=== PATIENT | female | born 1940 | race Caucasian/White ===

== ENCOUNTER 2016-07-26 21:49 | Inpatient (IN) | payer MEDICARE, BC ==
[2016-07-26] MEDS ORDERED: methylPREDNISolone 125 MG* 2 ML VIAL IV ONE (22:16)
[2016-07-26] MEDS ORDERED: Albuterol/Ipratropium NEB.SOL* Albuterol 2.5 MG/Ipratropium 0.5 MG 3 ML INH ONE (22:16)
--- NOTE | 2016-07-26 22:39 | RAD ---
Indication: Congestion, cough, shortness of breath with progression over the last 2 days. History of cardiac and respiratory disease. Comparison: No relevant prior exams available on the [facility] PACS for comparison. Technique: Upright AP 2210 hours Report: Elevated lung volumes and both diffuse mild prominence of the interstitial markings and patchy rarefaction of the mid to upper lung zone interstitial markings. Negative for alveolar consolidation, focal pulmonary lesions, pleural effusion, pneumothorax. Negative for cardiomegaly. Prominent central pulmonary vasculature with cephalization. Nonetheless the central pulmonary vasculature remains well defined. IMPRESSION: Stigmata of obstructive lung disease. No acute pulmonary or cardiac process evident. Probable pulmonary arterial hypertension.
[2016-07-26] MEDS: NS 0.9% 1000 ML* 2,500 ML IV ONE (22:49)
[2016-07-26 23:10] LABS: Hematocrit 39 % (35-47); Hemoglobin 12.8 g/dl (12.0-16.0); Mean Corpuscular HGB Conc 33 g/dl (31-36); Mean Corpuscular Hemoglobin 29 pg (27-31); Mean Corpuscular Volume 89 fL (80-97); Mean Platelet Volume 8 um3 (7.4-10.4); Red Blood Count 4.43 10^6/ul (4.0-5.4); Red Cell Distribution Width 13 % (10.5-15); White Blood Count 16.3 10^3/ul (3.5-10.8)
[2016-07-26 23:27] LABS: Albumin 4.5 g/dL (3.2-5.2); BUN/Creatinine Ratio 16.4 (8-20); Calcium 9.4 mg/dL (8.6-10.3); EGFR African American 100.2 (>60); EGFR Non-African American 77.9 (>60); Globulin 2.5 g/dL (2-4); Potassium 3.6 mmol/L (3.5-5.0); Total Bilirubin 0.3 mg/dL (0.2-1.0)
[2016-07-26] MEDS ORDERED: Azithromycin IV* 500 MG ADVAN VIAL IVPB ONE (23:34)
[2016-07-26] MEDS ORDERED: cefTRIAXone(*) 1 GM in NS 0.9% 50 ML* 50 ML IVPB ONE (23:34)
[2016-07-26] MEDS ORDERED: NS 0.9% 1000 ML* 2,500 ML IV ONE (23:36)
[2016-07-27] MEDS ORDERED: Ondansetron INJ* 2 MG/ML VIAL IV PRN (00:40)
[2016-07-27] MEDS ORDERED: Albuterol 2.5 MG/3 ML NEB.SOL* (0.083%) INH PRN (00:40)
[2016-07-27] MEDS ORDERED: CMCS: Melatonin (NF) 3 MG TAB PO PRN (00:40)
[2016-07-27] MEDS ORDERED: cefTRIAXone VIAL(*) 1,000 MG in NS 0.9% 50 ML* 50 ML IVPB SCH (01:00)
[2016-07-27] MEDS ORDERED: Azithromycin IV(*) 500 MG in NS 0.9% 250 ML* 250 ML IVPB SCH (01:00)
--- NOTE | 2016-07-27 01:00 | HP ---
H&P (Free Text) History and Physical: PCP: Stevie Conde NP Date/Time of Evaluation: 07/26/2016 2354 CC: SOB HPI: Mrs Palmer is a 76YO female HX 2L oxygen dependent COPD previously requiring intubation for exacerbation presents with malaise and fatigue beginning progressing to include SOB and cough today. She denies subjective F/C, N/V, chest pain, palpitations, light-headedness, or other issues. Her had been ill with an upper respiratory infection the preceding week. She presented once the SOB began as she "goes down quickly". She has taken 2 doses of erythromycin since yesterday from a former prescription. PMedHx 2L oxygen dependent COPD w/ HX hyperCarbia requiring intubation HTN hypothyroidism GERD anxiety Ambulatory Orders Albuterol 2.5MG/3ML (0.083%)* [Ventolin 2.5 MG/3 ML NEB.CHAD*] 2.5 mg INH BID 05/29 Alprazolam 0.25 mg PO BID 09/18/13 Ascorbic Acid [Vitamin C] 500 mg PO DAILY 09/18/13 Fluticasone-Salmeterol [Advair Diskus 250-50 Mcg/Dose] 1 inh INH BID 09/18/13 Levothyroxine Sodium [Synthroid] 125 mcg PO QAM 09/18/13 Multiple Vitamins W/ Minerals [Multi Complete] 1 cap PO DAILY 09/18/13 Prilosec 20 mg PO DAILY 09/18/13 Tiotropium CAP.INH* [Spiriva*] 1 cap INH DAILY 09/18/13 Cholecalciferol [Vitamin D] 1,000 unit PO DAILY 12/14/13 Guaifenesin [Mucinex] 600 mg PO DAILY PRN 12/14/13 Oxygen 12/14/13 Polyethylene Glycol 3350* [Miralax*] 17 gm PO DAILY 12/14/13 Sennosides-Docusate Sodium [Stool Softener Laxative 8.6-50 mg] 1 tab PO DAILY Allergies Diazepam [From Valium] Allergy (Intermediate, Verified 12/27/13 10:15) Agitation Tetracycline Allergy (Intermediate, Verified 12/27/13 10:15) Blurred Vision Tetanus Toxoid Allergy (Verified 05/26/14 13:55) swelling to arm iv contrast Allergy (Severe, Uncoded 12/27/13 10:15) See Comment pt had hives after IVP. After myelogram high fever, n/v with overnight hospital stay SocHx: former smoker quit 5years ago, ~3 glasses of wine weekly, no recreational drugs; lives with her ; full code status FamHx: strongly positive for cancer ROS: as above, otherwise reviewed and all were negative Constitutional: NAD, normally developed, overweight white female vitals: Vital Signs Temp 37.1 C 07/26/16 22:36 Pulse 116 07/26/16 22:52 Resp 26 07/26/16 22:52 BP 139/64 07/26/16 21:54 Pulse Ox 99 07/26/16 22:52 Intake & Output 07/26/16 07/26/16 07/27/16 11:59 23:59 11:59 Weight 73.482 kg HEENM: atraumatic; sclera/conjunctiva: non-icteric/clear; hearing: clinically intact; oropharynx: clear, mucosa tacky Neck: soft tissue: non-tender; thyroid: normal Pulmonary: scant L lateral base crackle, good aeration, no accessory muscle use CV: RR/RR, normal S1S2, no carotid bruit, no jugular venous distention, 2+ B DP/ PT, no edema Abdominal: soft, non-distended, non-tender, no rebound/guarding/rigidity, normoactive bowel sounds, no hepatosplenomegaly or masses, no costovertebral angle tenderness Musculoskeletal: general: grossly intact; gait: stable Integumental: normal appearance and texture of exposed skin Psychiatric orientation: AA&O to PPS affect: calm mood: cooperative eye contact: good content: reliable responses: timely insight: good Testing: Lab Results 07/26/16 07/26/16 07/26/16 Range/Units 22:53 22:53 22:53 WBC 16.3 H (3.5-10.8) 10^3/ul RBC 4.43 (4.0-5.4) 10^6/ul Hgb 12.8 (12.0-16.0) g/dl Hct 39 (35-47) % MCV 89 (80-97) fL MCH 29 (27-31) pg MCHC 33 (31-36) g/dl RDW 13 (10.5-15) % Plt Count 260 (150-450) 10^3/ul MPV 8 (7.4-10.4) um3 Neut % (Auto) 90.6 H (38-83) % Lymph % (Auto) 4.0 L (25-47) % [place] % (Auto) 4.2 (1-9) % Eos % (Auto) 0.9 (0-6) % Baso % (Auto) 0.3 (0-2) % Absolute Neuts (auto) 14.8 H (1.5-7.7) 10^3/ul Absolute Lymphs (auto) 0.7 L (1.0-4.8) 10^3/ul Absolute Monos (auto) 0.7 (0-0.8) 10^3/ul Absolute Eos (auto) 0.1 (0-0.6) 10^3/ul Absolute Basos (auto) 0.1 (0-0.2) 10^3/ul Absolute Nucleated RBC 0.01 10^3/ul Nucleated RBC % 0 INR (Anticoag Therapy) 0.86 L (0.89-1.11) APTT 29.3 (26.0-36.3) seconds Sodium (133-145) mmol/L Potassium (3.5-5.0) mmol/L Chloride (101-111) mmol/L Carbon Dioxide (22-32) mmol/L Anion Gap (2-11) mmol/L BUN (6-24) mg/dL Creatinine (0.51-0.95) mg/dL Est GFR ( Amer) (>60) Est GFR (Non-Af Amer) (>60) BUN/Creatinine Ratio (8-20) Glucose (70-100) mg/dL Lactic Acid 1.6 (0.5-2.0) mmol/L Calcium (8.6-10.3) mg/dL Total Bilirubin (0.2-1.0) mg/dL AST (13-39) U/L ALT (7-52) U/L Alkaline Phosphatase (34-104) U/L Troponin I (<0.04) ng/mL Total Protein (6.4-8.9) g/dL Albumin (3.2-5.2) g/dL Globulin (2-4) g/dL Albumin/Globulin Ratio (1-3) 07/26/16 Range/Units 22:54 WBC (3.5-10.8) 10^3/ul RBC (4.0-5.4) 10^6/ul Hgb (12.0-16.0) g/dl Hct (35-47) % MCV (80-97) fL MCH (27-31) pg MCHC (31-36) g/dl RDW (10.5-15) % Plt Count (150-450) 10^3/ul MPV (7.4-10.4) um3 Neut % (Auto) (38-83) % Lymph % (Auto) (25-47) % [place] % (Auto) (1-9) % Eos % (Auto) (0-6) % Baso % (Auto) (0-2) % Absolute Neuts (auto) (1.5-7.7) 10^3/ul Absolute Lymphs (auto) (1.0-4.8) 10^3/ul Absolute Monos (auto) (0-0.8) 10^3/ul Absolute Eos (auto) (0-0.6) 10^3/ul Absolute Basos (auto) (0-0.2) 10^3/ul Absolute Nucleated RBC 10^3/ul Nucleated RBC % INR (Anticoag Therapy) (0.89-1.11) APTT (26.0-36.3) seconds Sodium 135 (133-145) mmol/L Potassium 3.6 (3.5-5.0) mmol/L Chloride 102 (101-111) mmol/L Carbon Dioxide 29 (22-32) mmol/L Anion Gap 4 (2-11) mmol/L BUN 12 (6-24) mg/dL Creatinine 0.73 (0.51-0.95) mg/dL Est GFR ( Amer) 100.2 (>60) Est GFR (Non-Af Amer) 77.9 (>60) BUN/Creatinine Ratio 16.4 (8-20) Glucose 143 H (70-100) mg/dL Lactic Acid (0.5-2.0) mmol/L Calcium 9.4 (8.6-10.3) mg/dL Total Bilirubin 0.30 (0.2-1.0) mg/dL AST 16 (13-39) U/L ALT 17 (7-52) U/L Alkaline Phosphatase 68 (34-104) U/L Troponin I 0.00 (<0.04) ng/mL Total Protein 7.0 (6.4-8.9) g/dL Albumin 4.5 (3.2-5.2) g/dL Globulin 2.5 (2-4) g/dL Albumin/Globulin Ratio 1.8 (1-3) ECG, personally reviewed: sinus tachycardia rate 111, no ischemia CXR, personally reviewed: IMPRESSION: Stigmata of obstructive lung disease. No acute pulmonary or cardiac process evident. Probable pulmonary arterial hypertension. Impression: 76F HX 2L oxygen dependent COPD presents in exacerbation DIAGNOSIS & PLAN Primary COPD exacerbation : albuterol nebs : mometasone/formoterol : tiotropium : guaifenesin : azithromycin & ceftriaxone : incentive spirometry : supplemtental oxygen cautiously 2nd HX hyperCarbia : supportive care Secondary HTN : review meds once reconciled hypothyroidism : continue levothyroxine once reconciled GERD : continue omeprazole anxiety : continue alprazolam once reconciled Admission Rational: inpatient for COPD exacerbation not anticipated to stabilize adequately w/i 48h to allow for discharge DVTp: heparin SQ Code Status: full HCP:
[2016-07-27] MEDS: Benzonatate CAP* 100 MG PO PRN ×2 (03:30→18:23)
[2016-07-27] MEDS: Albuterol 2.5 MG/3 ML NEB.SOL* (0.083%) INH SCH ×4 (04:09→19:34)
[2016-07-27] MEDS: Levothyroxine TAB* 125 MCG TAB PO SCH (05:42)
[2016-07-27 05:58] LABS: Hematocrit 35 % (35-47); Hemoglobin 11.2 g/dl (12.0-16.0); Mean Corpuscular HGB Conc 32 g/dl (31-36); Mean Corpuscular Hemoglobin 29 pg (27-31); Mean Corpuscular Volume 89 fL (80-97); Mean Platelet Volume 9 um3 (7.4-10.4); Red Blood Count 3.89 10^6/ul (4.0-5.4); Red Cell Distribution Width 14 % (10.5-15); White Blood Count 19.6 10^3/ul (3.5-10.8)
[2016-07-27] MEDS: Omeprazole CAP* 20 MG PO SCH (06:13)
[2016-07-27 06:21] LABS: Urine Bilirubin Negative (Negative); Urine Glucose Negative (Negative); Urine Nitrite Negative (Negative)
[2016-07-27] MEDS: Mometasone/Formoter 200/5 MDI INH SCH ×2 (07:35→19:34)
[2016-07-27] MEDS: Tiotropium CAP.INH* CAP.INH/18 MCG INH SCH (07:35)
[2016-07-27] MEDS: Docusate CAP* 100 MG PO SCH ×2 (08:56→20:33)
[2016-07-27] MEDS: ALPRAZolam TAB* 0.5 MG PO SCH ×3 (08:56→20:36)
[2016-07-27] MEDS: Senna TAB PO SCH (08:57)
[2016-07-27] MEDS: guaiFENesin ER TAB 600 MG PO SCH ×2 (08:57→20:33)
[2016-07-27] MEDS: Polyethylene Glycol 3350* 17 GM PACKET PO SCH (08:57)
[2016-07-27] MEDS ORDERED: Senna/Docusate (NF) TAB PO SCH (09:00)
[2016-07-27] MEDS ORDERED: Spiriva Inhaler DEVICE* 1 EACH DEVICE INH ONE (09:00)
[2016-07-27] MEDS ORDERED: Tiotropium CAP.INH* CAP.INH/18 MCG INH SCH (09:00)
--- NOTE | 2016-07-27 09:42 | PN ---
Subjective Date of Service: 07/27/16 Interval History: Patient seen and examined at bedside. Reports feeling tired from being awake most of night. Denies CP. Feels SOB is better. Denies fever/chills since being admitted. No other acute concerns at this time. Family History: Unchanged from Admission Social History: Unchanged from Admission Past Medical History: Unchanged from Admission Objective Active Medications: Acetaminophen (Tylenol Tab*) 650 mg PO Q6H PRN PRN Reason: FEVER/PAIN Albuterol (Ventolin 2.5 Mg/3 Ml Neb.Juanita*) 2.5 mg INH Q2H PRN PRN Reason: SOB/WHEEZING Albuterol (Ventolin 2.5 Mg/3 Ml Neb.Juanita*) 2.5 mg INH [id number] AWAKE FOR[facility]LY [facility], [facility] Last Admin: 07/27/16 07:33 Dose: 2.5 mg Alprazolam (Xanax Tab*) 0.25 mg PO BID [facility], [facility] Last Admin: 07/27/16 08:56 Dose: 0.25 mg Benzonatate (Tessalon Cap*) 100 mg PO TID PRN PRN Reason: COUGH Last Admin: 07/27/16 03:30 Dose: 100 mg Docusate Sodium (Colace Cap*) 200 mg PO BID [facility], [facility] Last Admin: 07/27/16 08:56 Dose: 200 mg Guaifenesin (Mucinex*) 1,200 mg PO BID [facility], [facility] Last Admin: 07/27/16 08:57 Dose: 1,200 mg Heparin Sodium (Porcine) (Heparin Vial(*)) 5,000 units SUBCUT Q8HR [facility], [facility] Sodium Chloride (Ns 0.9% 1000 Ml*) 1,000 mls @ 100 mls/hr IV PER RATE [facility], [facility]–1983 Ceftriaxone Sodium 1,000 mg/ (Sodium Chloride) 50 mls @ 200 mls/hr IVPB Q24H [facility], [facility] Azithromycin 500 mg/ Sodium (Chloride) 250 mls @ 250 mls/hr IVPB Q24H [facility], [facility] Levothyroxine Sodium (Synthroid Tab*) 125 mcg PO DAILY@0600 [facility] Last Admin: 07/27/16 05:42 Dose: 125 mcg Melatonin (Melatonin (Nf)) 3 mg PO BEDTIME PRN; Protocol PRN Reason: Sleep Methylprednisolone Sodium Succinate (Solu-Medrol 40 Mg) 40 mg IV Q8H [facility], [facility] Mometasone Furoate/Formoterol Fumar (Dulera 200/5 Mdi*) 2 puff INH BID [facility], [facility] Last Admin: 07/27/16 07:35 Dose: 2 puff Omeprazole (Prilosec Cap*) 20 mg PO DAILY@0600 [facility] Last Admin: 07/27/16 06:13 Dose: Not Given Ondansetron HCl (Zofran Inj*) 4 mg IV Q6H PRN PRN Reason: NAUSEA Polyethylene Glycol/Electrolytes (Miralax*) 17 gm PO DAILY [facility] Last Admin: 07/27/16 08:57 Dose: 17 gm Senna (Senokot Tab*) 1 tab PO DAILY [facility] Last Admin: 07/27/16 08:57 Dose: 1 tab Tiotropium [place] (Spiriva Cap.Inh*) 1 cap INH DAILY [facility] Last Admin: 07/27/16 07:35 Dose: 1 inh Vital Signs 07/27/16 07/27/16 07/27/16 01:24 02:48 03:37 Temperature 98.7 F 98.7 F 98.5 F Pulse Rate 108 96 Respiratory 28 16 Rate Blood Pressure 139/57 114/42 (mmHg) O2 Sat by Pulse 95 96 Oximetry 07/27/16 07/27/16 07:35 08:56 Temperature Pulse Rate 86 Respiratory 18 18 Rate Blood Pressure (mmHg) O2 Sat by Pulse 98 Oximetry Oxygen Devices in Use Now: Nasal Cannula - 3Lnc Appearance: Female patient, lying in bed, NAD Eyes: PERRLA Ears/Nose/Mouth/Throat: Mucous Membranes Moist Neck: NL Appearance and Movements; NL JVP Respiratory: Symmetrical Chest Expansion and Respiratory Effort, - - scattered rhonchi and expiratory wheezing, prolonged expiratory phase Cardiovascular: RRR Abdominal: NL Sounds; No Tenderness; No Distention Extremities: No Edema Neurological: Alert and Oriented x 3 Lines/Tubes/Other Access: Clean, Dry and Intact Peripheral IV Nutrition: Taking PO's Result Diagrams: 07/27/16 05:37 07/26/16 22:54 Assess/Plan/Problems-Billing Assessment: Ms. Palmer is a 76 yo female with a PMH of oxygen-dependent COPD, hypercarbia, HTN, hypothyroidism, GERD, and anxiety who presented to the ED on 07/26 with concern for increased SOB that is likely secondary to COPD exacerbation and CAP exposure. - Patient Problems (1) COPD (chronic obstructive pulmonary disease) Code(s): J44.9 - CHRONIC OBSTRUCTIVE PULMONARY DISEASE, UNSPECIFIED Comment: With exacerbation Patient's recently treated for CAP. Continue ceftriaxone and azithromycin Continue prn albuterol, Dulera, Spiriva, guaifenesin. Incentive spirometry Patient chronically on 2Lnc, now on 3Lnc Supportive care (2) HTN (hypertension) Code(s): I10 - ESSENTIAL (PRIMARY) HYPERTENSION Comment: Normotensive Does not appear to be on any chronic medications (3) Hypothyroidism Code(s): E03.9 - HYPOTHYROIDISM, UNSPECIFIED Comment: Continue levothyroxine. (4) GERD (gastroesophageal reflux disease) Code(s): K21.9 - GASTRO-ESOPHAGEAL REFLUX DISEASE WITHOUT ESOPHAGITIS Comment : Continue omeprazole. (5) Anxiety Code(s): F41.9 - ANXIETY DISORDER, UNSPECIFIED Comment: Continue alprazolam. (6) DVT prophylaxis Code(s): FCQ5581 - Comment: SQ heparin Status and Disposition: Inpatient admission. Anticipate discharge in 2-3 days.
[2016-07-27] MEDS: NS 0.9% 1000 ML* 1,000 ML IV SCH ×2 (12:43→22:36)
[2016-07-27] MEDS: Acetaminophen TAB* 325 MG PO PRN (23:13)
[2016-07-28] MEDS: cefTRIAXone VIAL(*) 1,000 MG in NS 0.9% 50 ML* 50 ML IVPB SCH (00:10)
[2016-07-28] MEDS: Azithromycin IV(*) 500 MG in NS 0.9% 250 ML* 250 ML IVPB SCH (00:36)
--- NOTE | 2016-07-28 00:51 | ED ---
Charla Pineda Alok, scribed for Julio C Lundberg MD on 07/26/16 at 2228 . HPI Febrile Illness - HPI Summary HPI Summary: 76F presents to the ED BIBA with SOB and a fever of 100.1 F for the last two days, progressively getting worse. Pt had a breathing treatment at 1930 today and again while en route to ED by EMS. Pt also notes non-productive cough and rhinorrhea. Pt notes recent weight gain. Pt notes a chest heaviness at times, last experienced yesterday lasting minutes. Pt denies myalgia, eye drainage, diarrhea, or edema. Pt denies dysuria, hematuria, or increased urinary frequency. PMHx includes home O2 for COPD. - History of Current Complaint Chief Complaint: EDRespiratoryDistress Time Seen by Provider: 07/26/16 22:05 Hx Obtained From: Patient Onset/Duration: Started Days Ago, Atraumatic, Still Present Timing: Constant Temperature: 37.8 C Initial Severity: Moderate Current Severity: Moderate Pain Intensity: 0 Pain Scale Used: 0-10 Numeric Aggravating Factors: Nothing Alleviating Factors: Other: - Breathing treatment x2 Associated Signs and Symptoms: Cough, SOB, Other: - chest heaviness yesterday, rhinorrhea - Allergy/Home Medications Allergies/Adverse Reactions: Allergies Allergy/AdvReac Type Severity Reaction Status Date / Time Diazepam [From Valium] Allergy Intermediate Agitation Verified 12/27/13 10:15 Tetracycline Allergy Intermediate Blurred Verified 12/27/13 10:15 Vision Tetanus Toxoid Allergy swelling Verified 05/26/14 13:55 to arm iv contrast Allergy Severe See Comment Uncoded 12/27/13 10:15 PMH/Surg Hx/FS Hx/Imm Hx Endocrine/Hematology History: Reports: Hx Thyroid Disease - HYPOTHYROID Respiratory History: Reports: Other Respiratory Problems/Disorders - O2 2 LITERS NASAL CANNULA GI History: Reports: Hx Gastroesophageal Reflux Disease - ON PRILOSEC FOR, Other GI Disorders - 3 MONTHS AGO- DX WITH DIVERTICULITIS Musculoskeletal History: Reports: Hx Arthritis Sensory History: Reports: Hx Cataracts - BILATERAL Denies: Hx Contacts or Glasses, Hx Hearing Aid Opthamlomology History: Reports: Hx Cataracts - BILATERAL Denies: Hx Contacts or Glasses Psychiatric History: Reports: Hx Anxiety - ON MEDICATION FOR - Surgical History Surgery Procedure, Year, and Place: 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 D&C at age 20, 1962 Hx Anesthesia Reactions: No Infectious Disease History: No Infectious Disease History: Denies: Traveled Outside the [place] in Last 30 Days - Family History Known Family History: Positive: Other - Yes- Breast CA - Social History Occupation: Retired Lives: With Family Alcohol Use: Occasionally Substance Use Type: Reports: None Smoking Status (MU): Former Smoker Amount Used/How Often: 1 PPD X 50 YEARS Review of Systems Positive: Fever. Negative: Chills Negative: Drainage, Erythema Positive: Nasal Discharge. Negative: Sore Throat Positive: Chest Pain Positive: Shortness Of Breath, Cough Negative: Abdominal Pain, Vomiting, Nausea Negative: dysuria, frequency - urinary, hematuria Negative: Myalgia, Edema Negative: Rash Neurological: Other - Negative: dizziness All Other Systems Reviewed And Are Negative: Yes Physical Exam - Summary Physical Exam Summary: Constitutional: Well-developed, Well-nourished, Alert. (-) Distressed Skin: Warm, Dry HENT: Normocephalic; Atraumatic Eyes: Conjunctiva normal Neck: Musculoskeletal ROM normal neck. (-) JVD, (-) Stridor, (-) Tracheal deviation Cardio: Rhythm regular, rate normal, Heart sounds normal; Intact distal pulses; The pedal pulses are 2+ and symmetric. Radial pulses are 2+ and symmetric. (-) Murmur Pulmonary/Chest wall: Rhonchi in right lower lung field. Tachypnic. Pursed lip breathing. Abd: Soft, (-) Tenderness, (-) Distension, (-) Guarding, (-) Rebound Musculoskeletal: (-) Edema Lymph: (-) Cervical adenopathy Neuro: Alert, Oriented x3 Psych: Mood and affect Normal Triage Information Reviewed: Yes Vital Signs On Initial Exam: Initial Vitals Temp Pulse Resp BP Pulse Ox 100.1 F 112 22 139/64 95 07/26/16 21:54 07/26/16 21:54 07/26/16 21:54 07/26/16 21:54 07/26/16 21:54 Vital Signs Reviewed: Yes Diagnostics - Vital Signs Vital Signs Temp Pulse Resp BP Pulse Ox 07/26/16 21:54 100.1 F 112 22 139/64 95 - Laboratory Lab Results: Lab Results 06/11/17 06/11/17 06/11/17 Range/Units 22:53 22:53 22:53 WBC 16.3 H (3.5-10.8) 10^3/ul RBC 4.43 (4.0-5.4) 10^6/ul Hgb 12.8 (12.0-16.0) g/dl Hct 39 (35-47) % MCV 89 (80-97) fL MCH 29 (27-31) pg MCHC 33 (31-36) g/dl RDW 13 (10.5-15) % Plt Count 260 (150-450) 10^3/ul MPV 8 (7.4-10.4) um3 Neut % (Auto) 90.6 H (38-83) % Lymph % (Auto) 4.0 L (25-47) % [place] % (Auto) 4.2 (1-9) % Eos % (Auto) 0.9 (0-6) % Baso % (Auto) 0.3 (0-2) % Absolute Neuts (auto) 14.8 H (1.5-7.7) 10^3/ul Absolute Lymphs (auto) 0.7 L (1.0-4.8) 10^3/ul Absolute Monos (auto) 0.7 (0-0.8) 10^3/ul Absolute Eos (auto) 0.1 (0-0.6) 10^3/ul Absolute Basos (auto) 0.1 (0-0.2) 10^3/ul Absolute Nucleated RBC 0.01 10^3/ul Nucleated RBC % 0 INR (Anticoag Therapy) 0.86 L (0.89-1.11) APTT 29.3 (26.0-36.3) seconds Sodium (133-145) mmol/L Potassium (3.5-5.0) mmol/L Chloride (101-111) mmol/L Carbon Dioxide (22-32) mmol/L Anion Gap (2-11) mmol/L BUN (6-24) mg/dL Creatinine (0.51-0.95) mg/dL Est GFR ( Amer) (>60) Est GFR (Non-Af Amer) (>60) BUN/Creatinine Ratio (8-20) Glucose (70-100) mg/dL Lactic Acid 1.6 (0.5-2.0) mmol/L Calcium (8.6-10.3) mg/dL Total Bilirubin (0.2-1.0) mg/dL AST (13-39) U/L ALT (7-52) U/L Alkaline Phosphatase (34-104) U/L Troponin I (<0.04) ng/mL Total Protein (6.4-8.9) g/dL Albumin (3.2-5.2) g/dL Globulin (2-4) g/dL Albumin/Globulin Ratio (1-3) // Range/Units 22:54 WBC (3.5-10.8) 10^3/ul RBC (4.0-5.4) 10^6/ul Hgb (12.0-16.0) g/dl Hct (35-47) % MCV (80-97) fL MCH (27-31) pg MCHC (31-36) g/dl RDW (10.5-15) % Plt Count (150-450) 10^3/ul MPV (7.4-10.4) um3 Neut % (Auto) (38-83) % Lymph % (Auto) (25-47) % [place] % (Auto) (1-9) % Eos % (Auto) (0-6) % Baso % (Auto) (0-2) % Absolute Neuts (auto) (1.5-7.7) 10^3/ul Absolute Lymphs (auto) (1.0-4.8) 10^3/ul Absolute Monos (auto) (0-0.8) 10^3/ul Absolute Eos (auto) (0-0.6) 10^3/ul Absolute Basos (auto) (0-0.2) 10^3/ul Absolute Nucleated RBC 10^3/ul Nucleated RBC % INR (Anticoag Therapy) (0.89-1.11) APTT (26.0-36.3) seconds Sodium 135 (133-145) mmol/L Potassium 3.6 (3.5-5.0) mmol/L Chloride 102 (101-111) mmol/L Carbon Dioxide 29 (22-32) mmol/L Anion Gap 4 (2-11) mmol/L BUN 12 (6-24) mg/dL Creatinine 0.73 (0.51-0.95) mg/dL Est GFR ( Amer) 100.2 (>60) Est GFR (Non-Af Amer) 77.9 (>60) BUN/Creatinine Ratio 16.4 (8-20) Glucose 143 H (70-100) mg/dL Lactic Acid (0.5-2.0) mmol/L Calcium 9.4 (8.6-10.3) mg/dL Total Bilirubin 0.30 (0.2-1.0) mg/dL AST 16 (13-39) U/L ALT 17 (7-52) U/L Alkaline Phosphatase 68 (34-104) U/L Troponin I 0.00 (<0.04) ng/mL Total Protein 7.0 (6.4-8.9) g/dL Albumin 4.5 (3.2-5.2) g/dL Globulin 2.5 (2-4) g/dL Albumin/Globulin Ratio 1.8 (1-3) Result Diagrams: 07/27/16 05:37 07/26/16 22:54 Lab Statement: Any lab studies that have been ordered have been reviewed, and results considered in the medical decision making process. - Radiology CXR Xray Interpretation: Positive (See Comments) - IMPRESSION: Stigmata of obstructive lung disease. No acute pulmonary or cardiac process evident. Probable pulmonary arterial hypertension. Radiology Interpretation Completed By: Radiologist - EKG 2231 Cardiac Rate: Tachycardia - 111 bpm EKG Rhythm: Sinus Tachycardia EKG Interpretation: No STEMI Course/Dx - Diagnoses Provider Diagnoses: Community acquired pneumonia Discharge - Discharge Plan Condition: Stable Disposition: ADMITTED TO [facility] documentation as recorded by the Charla andrews Alok accurately reflects the service I personally performed and the decisions made by , Julio C Lundberg MD.
[2016-07-28] MEDS: Albuterol 2.5 MG/3 ML NEB.SOL* (0.083%) INH SCH ×4 (01:20→21:13)
[2016-07-28] MEDS: Benzonatate CAP* 100 MG PO PRN ×2 (06:07→14:45)
[2016-07-28] MEDS: Omeprazole CAP* 20 MG PO SCH (06:07)
[2016-07-28] MEDS: Levothyroxine TAB* 125 MCG TAB PO SCH (06:07)
[2016-07-28] MEDS: Heparin VIAL(*) 5000 UNITS/ML VIAL (FIVE THOUSAND) SUBCUT SCH ×3 (06:09→21:55)
[2016-07-28 06:34] LABS: Hematocrit 33 % (35-47); Hemoglobin 10.8 g/dl (12.0-16.0); Mean Corpuscular HGB Conc 33 g/dl (31-36); Mean Corpuscular Hemoglobin 29 pg (27-31); Mean Corpuscular Volume 89 fL (80-97); Mean Platelet Volume 9 um3 (7.4-10.4); Red Blood Count 3.71 10^6/ul (4.0-5.4); Red Cell Distribution Width 14 % (10.5-15); White Blood Count 14.5 10^3/ul (3.5-10.8)
[2016-07-28] MEDS: Tiotropium CAP.INH* CAP.INH/18 MCG INH SCH (07:30)
[2016-07-28] MEDS: Mometasone/Formoter 200/5 MDI INH SCH ×2 (07:30→21:15)
[2016-07-28] MEDS ORDERED: predniSONE TAB* 20 MG PO ONE (08:14)
--- NOTE | 2016-07-28 08:14 | PN ---
Subjective Date of Service: 07/28/16 Interval History: Patient seen and examined at bedside. Reports feeling mildly improved with SOB but is still wheezing, coughing, and fatigued. Denies CP but abdomen hurts from "coughing so much." Reports mild sputum expectoration. Denies fever/chills. Family History: Unchanged from Admission Social History: Unchanged from Admission Past Medical History: Unchanged from Admission Objective Active Medications: Acetaminophen (Tylenol Tab*) 650 mg PO Q6H PRN PRN Reason: FEVER/PAIN Last Admin: 07/27/16 23:13 Dose: 650 mg Albuterol (Ventolin 2.5 Mg/3 Ml Neb.Juanita*) 2.5 mg INH Q2H PRN PRN Reason: SOB/WHEEZING Albuterol (Ventolin 2.5 Mg/3 Ml Neb.Juanita*) 2.5 mg INH [id number] AWAKE [facility] Last Admin: 07/28/16 07:31 Dose: 2.5 mg Alprazolam (Xanax Tab*) 0.25 mg PO BID [facility] Last Admin: 07/27/16 20:36 Dose: Not Given Benzonatate (Tessalon Cap*) 100 mg PO TID PRN PRN Reason: COUGH Last Admin: 07/28/16 06:07 Dose: 100 mg Docusate Sodium (Colace Cap*) 200 mg PO BID [facility] Last Admin: 07/27/16 20:33 Dose: 200 mg Guaifenesin (Mucinex*) 1,200 mg PO BID [facility] Last Admin: 07/27/16 20:33 Dose: 1,200 mg Heparin Sodium (Porcine) (Heparin Vial(*)) 5,000 units SUBCUT Q8HR [facility] Last Admin: 07/28/16 06:09 Dose: 5,000 units Sodium Chloride (Ns 0.9% 1000 Ml*) 1,000 mls @ 100 mls/hr IV PER RATE [facility] Last Admin: 07/27/16 22:36 Dose: 100 mls/hr Ceftriaxone Sodium 1,000 mg/ (Sodium Chloride) 50 mls @ 200 mls/hr IVPB Q24H [facility] Last Admin: 07/28/16 00:10 Dose: 200 mls/hr Azithromycin 500 mg/ Sodium (Chloride) 250 mls @ 250 mls/hr IVPB Q24H [facility] Last Admin: 07/28/16 00:36 Dose: 250 mls/hr Levothyroxine Sodium (Synthroid Tab*) 125 mcg PO DAILY@0600 [facility] Last Admin: 07/28/16 06:07 Dose: 125 mcg Melatonin (Melatonin (Nf)) 3 mg PO BEDTIME PRN; Protocol PRN Reason: Sleep Mometasone Furoate/Formoterol Fumar (Dulera 200/5 Mdi*) 2 puff INH BID [facility] Last Admin: 07/28/16 07:30 Dose: 2 puff Omeprazole (Prilosec Cap*) 20 mg PO DAILY@0600 [facility] Last Admin: 07/28/16 06:07 Dose: Not Given Ondansetron HCl (Zofran Inj*) 4 mg IV Q6H PRN PRN Reason: NAUSEA Polyethylene Glycol/Electrolytes (Miralax*) 17 gm PO DAILY [facility] Last Admin: 07/27/16 08:57 Dose: 17 gm Senna (Senokot Tab*) 1 tab PO DAILY [facility] Last Admin: 07/27/16 08:57 Dose: 1 tab Tiotropium [place] (Spiriva Cap.Inh*) 1 cap INH DAILY [facility] Last Admin: 07/28/16 07:30 Dose: 1 cap Vital Signs 07/27/16 07/27/16 07/27/16 08:56 13:46 15:34 Temperature 98.2 F Pulse Rate 85 77 Respiratory 18 24 Rate Blood Pressure 101/48 (mmHg) O2 Sat by Pulse 96 98 Oximetry 07/27/16 07/27/16 07/27/16 18:52 19:34 20:00 Temperature Pulse Rate 72 Respiratory 24 16 22 Rate Blood Pressure (mmHg) O2 Sat by Pulse 99 Oximetry 07/27/16 07/27/16 07/28/16 20:33 23:29 03:25 Temperature 98.2 F 98.3 F 98.2 F Pulse Rate 82 70 68 Respiratory 24 16 20 Rate Blood Pressure 107/50 114/56 126/56 (mmHg) O2 Sat by Pulse 98 97 98 Oximetry 07/28/16 07/28/16 07:21 07:33 Temperature 98.3 F Pulse Rate 66 68 Respiratory 16 12 Rate Blood Pressure 151/61 (mmHg) O2 Sat by Pulse 98 97 Oximetry Oxygen Devices in Use Now: Nasal Cannula - 3Lnc Appearance: Older female, lying in bed, mildly tachypneic but does not appear in distress. Eyes: PERRLA Ears/Nose/Mouth/Throat: Mucous Membranes Moist Neck: NL Appearance and Movements; NL JVP Respiratory: Symmetrical Chest Expansion and Respiratory Effort, - - scattered rhonchi and expiratory wheezing noted, prolonged exp phase Cardiovascular: RRR Abdominal: NL Sounds; No Tenderness; No Distention Extremities: No Edema Neurological: Alert and Oriented x 3 Lines/Tubes/Other Access: Clean, Dry and Intact Peripheral IV Result Diagrams: 07/28/16 06:07 07/26/16 22:54 Additional Lab and Data: Lab Results 07/26/16 07/26/16 07/26/16 Range/Units 22:53 22:53 22:53 WBC 16.3 H (3.5-10.8) 10^3/ul RBC 4.43 (4.0-5.4) 10^6/ul Hgb 12.8 (12.0-16.0) g/dl Hct 39 (35-47) % MCV 89 (80-97) fL MCH 29 (27-31) pg MCHC 33 (31-36) g/dl RDW 13 (10.5-15) % Plt Count 260 (150-450) 10^3/ul MPV 8 (7.4-10.4) um3 Neut % (Auto) 90.6 H (38-83) % Lymph % (Auto) 4.0 L (25-47) % [place] % (Auto) 4.2 (1-9) % Eos % (Auto) 0.9 (0-6) % Baso % (Auto) 0.3 (0-2) % Absolute Neuts (auto) 14.8 H (1.5-7.7) 10^3/ul Absolute Lymphs (auto) 0.7 L (1.0-4.8) 10^3/ul Absolute Monos (auto) 0.7 (0-0.8) 10^3/ul Absolute Eos (auto) 0.1 (0-0.6) 10^3/ul Absolute Basos (auto) 0.1 (0-0.2) 10^3/ul Absolute Nucleated RBC 0.01 10^3/ul Nucleated RBC % 0 INR (Anticoag Therapy) 0.86 L (0.89-1.11) APTT 29.3 (26.0-36.3) seconds Sodium (133-145) mmol/L Potassium (3.5-5.0) mmol/L Chloride (101-111) mmol/L Carbon Dioxide (22-32) mmol/L Anion Gap (2-11) mmol/L BUN (6-24) mg/dL Creatinine (0.51-0.95) mg/dL Est GFR ( Amer) (>60) Est GFR (Non-Af Amer) (>60) BUN/Creatinine Ratio (8-20) Glucose (70-100) mg/dL Lactic Acid 1.6 (0.5-2.0) mmol/L Calcium (8.6-10.3) mg/dL Total Bilirubin (0.2-1.0) mg/dL AST (13-39) U/L ALT (7-52) U/L Alkaline Phosphatase (34-104) U/L Troponin I (<0.04) ng/mL Total Protein (6.4-8.9) g/dL Albumin (3.2-5.2) g/dL Globulin (2-4) g/dL Albumin/Globulin Ratio (1-3) 07/26/16 Range/Units 22:54 WBC (3.5-10.8) 10^3/ul RBC (4.0-5.4) 10^6/ul Hgb (12.0-16.0) g/dl Hct (35-47) % MCV (80-97) fL MCH (27-31) pg MCHC (31-36) g/dl RDW (10.5-15) % Plt Count (150-450) 10^3/ul MPV (7.4-10.4) um3 Neut % (Auto) (38-83) % Lymph % (Auto) (25-47) % [place] % (Auto) (1-9) % Eos % (Auto) (0-6) % Baso % (Auto) (0-2) % Absolute Neuts (auto) (1.5-7.7) 10^3/ul Absolute Lymphs (auto) (1.0-4.8) 10^3/ul Absolute Monos (auto) (0-0.8) 10^3/ul Absolute Eos (auto) (0-0.6) 10^3/ul Absolute Basos (auto) (0-0.2) 10^3/ul Absolute Nucleated RBC 10^3/ul Nucleated RBC % INR (Anticoag Therapy) (0.89-1.11) APTT (26.0-36.3) seconds Sodium 135 (133-145) mmol/L Potassium 3.6 (3.5-5.0) mmol/L Chloride 102 (101-111) mmol/L Carbon Dioxide 29 (22-32) mmol/L Anion Gap 4 (2-11) mmol/L BUN 12 (6-24) mg/dL Creatinine 0.73 (0.51-0.95) mg/dL Est GFR ( Amer) 100.2 (>60) Est GFR (Non-Af Amer) 77.9 (>60) BUN/Creatinine Ratio 16.4 (8-20) Glucose 143 H (70-100) mg/dL Lactic Acid (0.5-2.0) mmol/L Calcium 9.4 (8.6-10.3) mg/dL Total Bilirubin 0.30 (0.2-1.0) mg/dL AST 16 (13-39) U/L ALT 17 (7-52) U/L Alkaline Phosphatase 68 (34-104) U/L Troponin I 0.00 (<0.04) ng/mL Total Protein 7.0 (6.4-8.9) g/dL Albumin 4.5 (3.2-5.2) g/dL Globulin 2.5 (2-4) g/dL Albumin/Globulin Ratio 1.8 (1-3) Microbiology and Other Data: Microbiology 07/27/16 15:10 Influenza Types A,B Antigen (HUNG) - Final Nasal Specimen received for Influenza A/B Molecular testing Assess/Plan/Problems-Billing Assessment: Ms. Palmer is a 76 yo female with a PMH of oxygen-dependent COPD, hypercarbia, HTN, hypothyroidism, GERD, and anxiety who presented to the ED on 07/26 with concern for increased SOB that is likely secondary to COPD exacerbation and CAP exposure. - Patient Problems (1) COPD (chronic obstructive pulmonary disease) Code(s): J44.9 - CHRONIC OBSTRUCTIVE PULMONARY DISEASE, UNSPECIFIED Comment: With exacerbation Patient's recently treated for CAP. Continue ceftriaxone and azithromycin Continue prn albuterol, Dulera, Spiriva, guaifenesin. Incentive spirometry, add flutter valve Patient chronically on 2Lnc, now on 3Lnc Supportive care (2) HTN (hypertension) Code(s): I10 - ESSENTIAL (PRIMARY) HYPERTENSION Comment: Normotensive Does not appear to be on any chronic medications (3) Hypothyroidism Code(s): E03.9 - HYPOTHYROIDISM, UNSPECIFIED Comment: Continue levothyroxine. (4) GERD (gastroesophageal reflux disease) Code(s): K21.9 - GASTRO-ESOPHAGEAL REFLUX DISEASE WITHOUT ESOPHAGITIS Comment : Continue omeprazole. (5) Anxiety Code(s): F41.9 - ANXIETY DISORDER, UNSPECIFIED Comment: Continue alprazolam. (6) DVT prophylaxis Code(s): FML8732 - Comment: SQ heparin Status and Disposition: Inpatient admission. Anticipate discharge in 2-3 days.
[2016-07-28] MEDS ORDERED: methylPREDNISolone SOD 40 MG* 1 ML VIAL IV SCH (09:00)
[2016-07-28] MEDS: guaiFENesin ER TAB 600 MG PO SCH ×2 (09:39→20:29)
[2016-07-28] MEDS: ALPRAZolam TAB* 0.5 MG PO SCH ×2 (09:39→20:30)
[2016-07-28] MEDS: Docusate CAP* 100 MG PO SCH ×2 (09:39→20:33)
[2016-07-28] MEDS: Senna TAB PO SCH (09:40)
[2016-07-28] MEDS: Polyethylene Glycol 3350* 17 GM PACKET PO SCH (11:04)
[2016-07-28] MEDS ORDERED: ALPRAZolam TAB* 0.25 MG PO PRN (16:24)
[2016-07-28] MEDS: Acetaminophen TAB* 325 MG PO PRN (21:54)
[2016-07-29] MEDS: cefTRIAXone VIAL(*) 1,000 MG in NS 0.9% 50 ML* 50 ML IVPB SCH (00:08)
[2016-07-29] MEDS: Albuterol 2.5 MG/3 ML NEB.SOL* (0.083%) INH SCH ×2 (01:05→07:26)
[2016-07-29] MEDS: Azithromycin IV(*) 500 MG in NS 0.9% 250 ML* 250 ML IVPB SCH (01:17)
[2016-07-29] MEDS: Acetaminophen TAB* 325 MG PO PRN (02:51)
[2016-07-29] MEDS: Benzonatate CAP* 100 MG PO PRN (02:51)
[2016-07-29 05:26] LABS: Hematocrit 32 % (35-47); Hemoglobin 10.5 g/dl (12.0-16.0); Mean Corpuscular HGB Conc 33 g/dl (31-36); Mean Corpuscular Hemoglobin 29 pg (27-31); Mean Corpuscular Volume 89 fL (80-97); Mean Platelet Volume 9 um3 (7.4-10.4); Red Cell Distribution Width 14 % (10.5-15); White Blood Count 10.6 10^3/ul (3.5-10.8)
[2016-07-29] MEDS: Levothyroxine TAB* 125 MCG TAB PO SCH (05:48)
[2016-07-29] MEDS: Heparin VIAL(*) 5000 UNITS/ML VIAL (FIVE THOUSAND) SUBCUT SCH (05:49)
[2016-07-29] MEDS: Omeprazole CAP* 20 MG PO SCH (05:51)
[2016-07-29] MEDS: Mometasone/Formoter 200/5 MDI INH SCH (07:26)
[2016-07-29] MEDS: Tiotropium CAP.INH* CAP.INH/18 MCG INH SCH (07:26)
[2016-07-29 08:01] VITALS: BP 153/68
[2016-07-29] MEDS ORDERED: predniSONE TAB* 20 MG PO SCH (09:00)
[2016-07-29] MEDS: Senna TAB PO SCH (09:11)
[2016-07-29] MEDS: guaiFENesin ER TAB 600 MG PO SCH (09:11)
[2016-07-29] MEDS: Docusate CAP* 100 MG PO SCH (09:11)
[2016-07-29] MEDS: ALPRAZolam TAB* 0.5 MG PO SCH (09:12)
[2016-07-29] MEDS: Polyethylene Glycol 3350* 17 GM PACKET PO SCH (09:13)
--- NOTE | 2016-07-29 10:11 | PN ---
Subjective Date of Service: 07/29/16 Interval History: Patient seen and examined at bedside. She denies fever/chills, CP, increased SOB or other acute complaint. She feels improved and wishes to go home. No other acute concerns. Family History: Unchanged from Admission Social History: Unchanged from Admission Past Medical History: Unchanged from Admission Objective Active Medications: Acetaminophen (Tylenol Tab*) 650 mg PO Q6H PRN PRN Reason: FEVER/PAIN Last Admin: 07/29/16 02:51 Dose: 650 mg Albuterol (Ventolin 2.5 Mg/3 Ml Neb.Juanita*) 2.5 mg INH Q2H PRN PRN Reason: SOB/WHEEZING Albuterol (Ventolin 2.5 Mg/3 Ml Neb.Juanita*) 2.5 mg INH [id number] AWAKE [facility] Last Admin: 07/29/16 07:26 Dose: 2.5 mg Alprazolam (Xanax Tab*) 0.25 mg PO BID [facility] Last Admin: 07/29/16 09:12 Dose: 0.25 mg Alprazolam (Xanax Tab*) 0.25 mg PO Q12H PRN PRN Reason: ANXIETY Benzonatate (Tessalon Cap*) 100 mg PO TID PRN PRN Reason: COUGH Last Admin: 07/29/16 02:51 Dose: 100 mg Docusate Sodium (Colace Cap*) 200 mg PO BID [facility] Last Admin: 07/29/16 09:11 Dose: 200 mg Guaifenesin (Mucinex*) 1,200 mg PO BID [facility] Last Admin: 07/29/16 09:11 Dose: 1,200 mg Heparin Sodium (Porcine) (Heparin Vial(*)) 5,000 units SUBCUT Q8HR [facility] Last Admin: 07/29/16 05:49 Dose: 5,000 units Ceftriaxone Sodium 1,000 mg/ (Sodium Chloride) 50 mls @ 200 mls/hr IVPB Q24H [facility] Last Admin: 07/29/16 00:08 Dose: 200 mls/hr Azithromycin 500 mg/ Sodium (Chloride) 250 mls @ 250 mls/hr IVPB Q24H [facility] Last Admin: 07/29/16 01:17 Dose: 250 mls/hr Levothyroxine Sodium (Synthroid Tab*) 125 mcg PO DAILY@0600 [facility] Last Admin: 07/29/16 05:48 Dose: 125 mcg Melatonin (Melatonin (Nf)) 3 mg PO BEDTIME PRN; Protocol PRN Reason: Sleep Mometasone Furoate/Formoterol Fumar (Dulera 200/5 Mdi*) 2 puff INH BID [facility] Last Admin: 07/29/16 07:26 Dose: 2 puff Omeprazole (Prilosec Cap*) 20 mg PO DAILY@0600 [facility] Last Admin: 07/29/16 05:51 Dose: Not Given Ondansetron HCl (Zofran Inj*) 4 mg IV Q6H PRN PRN Reason: NAUSEA Polyethylene Glycol/Electrolytes (Miralax*) 17 gm PO DAILY [facility] Last Admin: 07/29/16 09:13 Dose: Not Given Prednisone (Deltasone Tab*) 40 mg PO DAILY [facility] Last Admin: 07/29/16 09:12 Dose: 40 mg Senna (Senokot Tab*) 1 tab PO DAILY [facility] Last Admin: 07/29/16 09:11 Dose: 1 tab Tiotropium [place] (Spiriva Cap.Inh*) 1 cap INH DAILY [facility] Last Admin: 07/29/16 07:26 Dose: 1 cap Vital Signs 07/28/16 07/28/16 07/28/16 11:39 13:19 13:28 Temperature Pulse Rate 98 96 Respiratory 20 18 18 Rate Blood Pressure (mmHg) O2 Sat by Pulse 96 96 Oximetry 07/28/16 07/28/16 07/28/16 14:28 19:12 20:00 Temperature 99.1 F 98.6 F Pulse Rate 106 89 Respiratory 16 26 20 Rate Blood Pressure 153/64 137/61 (mmHg) O2 Sat by Pulse 96 98 Oximetry 07/28/16 07/28/16 07/28/16 20:30 21:15 21:18 Temperature Pulse Rate 70 Respiratory 20 16 Rate Blood Pressure (mmHg) O2 Sat by Pulse 97 97 Oximetry 07/28/16 07/28/16 07/29/16 22:30 23:48 03:17 Temperature 98.5 F 97.8 F Pulse Rate 76 62 Respiratory 18 20 20 Rate Blood Pressure 127/54 130/64 (mmHg) O2 Sat by Pulse 99 99 Oximetry 07/29/16 07/29/16 07/29/16 07:28 07:53 08:00 Temperature 97.7 F Pulse Rate 65 91 Respiratory 16 16 20 Rate Blood Pressure 153/68 (mmHg) O2 Sat by Pulse 97 99 Oximetry 07/29/16 09:12 Temperature Pulse Rate Respiratory 19 Rate Blood Pressure (mmHg) O2 Sat by Pulse Oximetry Oxygen Devices in Use Now: Nasal Cannula - 2L Appearance: Older female, lying in bed, NAD Eyes: PERRLA Ears/Nose/Mouth/Throat: Mucous Membranes Moist Neck: NL Appearance and Movements; NL JVP Respiratory: - - diminished, expiratory wheezes Cardiovascular: RRR Abdominal: NL Sounds; No Tenderness; No Distention Extremities: No Edema Neurological: Alert and Oriented x 3, NL Muscle Strength and Tone Lines/Tubes/Other Access: Clean, Dry and Intact Peripheral IV Nutrition: Taking PO's Result Diagrams: 07/29/16 04:59 07/26/16 22:54 Additional Lab and Data: Lab Results 07/26/16 07/26/16 07/26/16 Range/Units 22:53 22:53 22:53 WBC 16.3 H (3.5-10.8) 10^3/ul RBC 4.43 (4.0-5.4) 10^6/ul Hgb 12.8 (12.0-16.0) g/dl Hct 39 (35-47) % MCV 89 (80-97) fL MCH 29 (27-31) pg MCHC 33 (31-36) g/dl RDW 13 (10.5-15) % Plt Count 260 (150-450) 10^3/ul MPV 8 (7.4-10.4) um3 Neut % (Auto) 90.6 H (38-83) % Lymph % (Auto) 4.0 L (25-47) % [place] % (Auto) 4.2 (1-9) % Eos % (Auto) 0.9 (0-6) % Baso % (Auto) 0.3 (0-2) % Absolute Neuts (auto) 14.8 H (1.5-7.7) 10^3/ul Absolute Lymphs (auto) 0.7 L (1.0-4.8) 10^3/ul Absolute Monos (auto) 0.7 (0-0.8) 10^3/ul Absolute Eos (auto) 0.1 (0-0.6) 10^3/ul Absolute Basos (auto) 0.1 (0-0.2) 10^3/ul Absolute Nucleated RBC 0.01 10^3/ul Nucleated RBC % 0 INR (Anticoag Therapy) 0.86 L (0.89-1.11) APTT 29.3 (26.0-36.3) seconds Sodium (133-145) mmol/L Potassium (3.5-5.0) mmol/L Chloride (101-111) mmol/L Carbon Dioxide (22-32) mmol/L Anion Gap (2-11) mmol/L BUN (6-24) mg/dL Creatinine (0.51-0.95) mg/dL Est GFR ( Amer) (>60) Est GFR (Non-Af Amer) (>60) BUN/Creatinine Ratio (8-20) Glucose (70-100) mg/dL Lactic Acid 1.6 (0.5-2.0) mmol/L Calcium (8.6-10.3) mg/dL Total Bilirubin (0.2-1.0) mg/dL AST (13-39) U/L ALT (7-52) U/L Alkaline Phosphatase (34-104) U/L Troponin I (<0.04) ng/mL Total Protein (6.4-8.9) g/dL Albumin (3.2-5.2) g/dL Globulin (2-4) g/dL Albumin/Globulin Ratio (1-3) 07/26/16 Range/Units 22:54 WBC (3.5-10.8) 10^3/ul RBC (4.0-5.4) 10^6/ul Hgb (12.0-16.0) g/dl Hct (35-47) % MCV (80-97) fL MCH (27-31) pg MCHC (31-36) g/dl RDW (10.5-15) % Plt Count (150-450) 10^3/ul MPV (7.4-10.4) um3 Neut % (Auto) (38-83) % Lymph % (Auto) (25-47) % [place] % (Auto) (1-9) % Eos % (Auto) (0-6) % Baso % (Auto) (0-2) % Absolute Neuts (auto) (1.5-7.7) 10^3/ul Absolute Lymphs (auto) (1.0-4.8) 10^3/ul Absolute Monos (auto) (0-0.8) 10^3/ul Absolute Eos (auto) (0-0.6) 10^3/ul Absolute Basos (auto) (0-0.2) 10^3/ul Absolute Nucleated RBC 10^3/ul Nucleated RBC % INR (Anticoag Therapy) (0.89-1.11) APTT (26.0-36.3) seconds Sodium 135 (133-145) mmol/L Potassium 3.6 (3.5-5.0) mmol/L Chloride 102 (101-111) mmol/L Carbon Dioxide 29 (22-32) mmol/L Anion Gap 4 (2-11) mmol/L BUN 12 (6-24) mg/dL Creatinine 0.73 (0.51-0.95) mg/dL Est GFR ( Amer) 100.2 (>60) Est GFR (Non-Af Amer) 77.9 (>60) BUN/Creatinine Ratio 16.4 (8-20) Glucose 143 H (70-100) mg/dL Lactic Acid (0.5-2.0) mmol/L Calcium 9.4 (8.6-10.3) mg/dL Total Bilirubin 0.30 (0.2-1.0) mg/dL AST 16 (13-39) U/L ALT 17 (7-52) U/L Alkaline Phosphatase 68 (34-104) U/L Troponin I 0.00 (<0.04) ng/mL Total Protein 7.0 (6.4-8.9) g/dL Albumin 4.5 (3.2-5.2) g/dL Globulin 2.5 (2-4) g/dL Albumin/Globulin Ratio 1.8 (1-3) Microbiology and Other Data: Microbiology 07/27/16 15:10 Influenza Types A,B Antigen (HUNG) - Final Nasal Specimen received for Influenza A/B Molecular testing Assess/Plan/Problems-Billing Assessment: Ms. Palmer is a 76 yo female with a PMH of oxygen-dependent COPD, hypercarbia, HTN, hypothyroidism, GERD, and anxiety who presented to the ED on 07/26 with concern for increased SOB that is likely secondary to COPD exacerbation and CAP exposure. - Patient Problems (1) COPD (chronic obstructive pulmonary disease) Code(s): J44.9 - CHRONIC OBSTRUCTIVE PULMONARY DISEASE, UNSPECIFIED Comment: With exacerbation Patient's recently treated for CAP. Continue ceftriaxone and azithromycin. Convert to PO azithro and cefdinir Continue prn albuterol, Dulera, Spiriva, guaifenesin. Incentive spirometry, flutter valve Patient chronically on 2Lnc, at baseline O2 Supportive care (2) HTN (hypertension) Code(s): I10 - ESSENTIAL (PRIMARY) HYPERTENSION Comment: Normotensive Does not appear to be on any chronic medications (3) Hypothyroidism Code(s): E03.9 - HYPOTHYROIDISM, UNSPECIFIED Comment: Continue levothyroxine. (4) GERD (gastroesophageal reflux disease) Code(s): K21.9 - GASTRO-ESOPHAGEAL REFLUX DISEASE WITHOUT ESOPHAGITIS Comment : Continue omeprazole. (5) Anxiety Code(s): F41.9 - ANXIETY DISORDER, UNSPECIFIED Comment: Continue alprazolam. (6) DVT prophylaxis Code(s): [id number] - Comment: SQ heparin Status and Disposition: Inpatient admission. D/c to home.
--- NOTE | 2016-07-30 12:13 | DS ---
CC: Cortes Conde NP * DISCHARGE SUMMARY: DATE OF ADMISSION: 07/27/16 DATE OF DISCHARGE: 07/29/16 PROVIDER: Annmarie Moreira NP ATTENDING PHYSICIAN: Dr. Nga Vernon * (as dictated by Annmarie Moreira NP) PRIMARY DISCHARGE DIAGNOSES: 1. Chronic obstructive pulmonary disease exacerbation. 2. Suspect community-acquired pneumonia, the patient with prior exposure from the . SECONDARY DIAGNOSES: 1. Oxygen-dependent chronic obstructive pulmonary disease with history of hypercapnia requiring intubation. 2. Hypertension. 3. Hypothyroidism. 4. Gastroesophageal reflux disease. 4. Anxiety. MEDICATIONS AT DISCHARGE: 1. Cholecalciferol 1000 units daily. 2. Vitamin C 500 mg daily. 3. Alprazolam 0.25 mg b.i.d. 4. Albuterol nebulizer 1 treatment inhaled b.i.d. 5. Multivitamin 1 capsule daily. 6. Levothyroxine 125 mcg q.a.m. 7. Advair 1 inhalation b.i.d. 8. MiraLax 17 g daily. 9. Spiriva 1 capsule inhaled daily. 10. Sennoside docusate sodium 1 tab daily. 11. Prednisone 40 mg daily x4 additional days. 12. Guaifenesin 1200 mg b.i.d. 13. Cefpodoxime 200 mg q.12 hours. 14. Benzonatate 100 mg t.i.d. p.r.n. 15. Azithromycin 250 mg daily x2 more days. 16. Albuterol nebulizer treatments q.4 to 6 hours when awake. HOSPITAL COURSE OF STAY: For full details, please refer to the H and P provided by Dr. You on 07/27/16. In summary, Ms. Palmer is a 76-year- old female with a history as previously mentioned, who presented to the ER with concerns for shortness of breath. She reports that her initially had pneumonia and was treated with antibiotics and he has improved, but she has started to feel fatigued and reports a fever at home. Patient took 2 pills from a previous antibiotic prescription that she had at home and came to the ER. Her chest x-ray showed no acute pulmonary or cardiac process evident, probable pulmonary arterial hypertension. However, the patient was audibly wheezy with rales and rhonchi heard on examination. She was admitted with concern for COPD exacerbation and started prophylactically on azithromycin and ceftriaxone, as well as IV Solu-Medrol and scheduled nebulizer treatments. The patient was slow to improve, but it did show improvement in her breathing. She has not required any oxygen escalation and has been able to be maintain on 2 L via nasal cannula. The patient reported improvement in her breathing on the and felt safe to go home. She is able to demonstrate safe ambulation and is independent with her ADLs. The patient was advised to continue her nebulized treatments and she does have a nebulizer machine at home. increase them to q.4 to 6 hours as she is recovering and then she can taper these back off to her usual b.i.d. p.r.n. She will continue prednisone for 4 additional days of treatment. She is to complete a 5-day course and be completing her azithromycin treatment as well as cefpodoxime. CONCERNS AT DISCHARGE: Ms. Palmer will be discharged to home on 07/29/16. She is to followup with her PCP, Cortes Conde. DIET: May resume previous diet. ACTIVITY: As tolerated. CONDITION: Stable. DISPOSITION: To home. TIME SPENT: Time spent on this discharge was approximately 45 minutes. Again, this is only a brief summary of the patient's hospital course of stay. For full details, please refer to the full medical record. If you have any further questions or need further assistance, please feel free to contact me at . ANNMARIE MOREIRA NP [id number]/[facility] #: [id number] KEVIN
== END 2016-07-29 11:35 | disposition home or self-care (01) | DRG 190 ==
LOC: ED 21:49 → MED 07-27 00:38
PROVIDERS: ADMIT Hospitalist; ATTEND Hospitalist
DX: J44.1 Chronic obstructive pulmonary disease with (acute) exacerbation (principal); J18.8 Other pneumonia, unspecified organism; I10 Essential (primary) hypertension; E03.9 Hypothyroidism, unspecified; K21.9 Gastro-esophageal reflux disease without esophagitis; F41.9 Anxiety disorder, unspecified; Z79.899 Other long term (current) drug therapy; Z99.81 Dependence on supplemental oxygen; Z88.8 Allergy status to other drugs, medicaments and biological substances; Z91.041 Radiographic dye allergy status; Z87.891 Personal history of nicotine dependence; Z80.9 Family history of malignant neoplasm, unspecified
CPT/HCPCS: 36415; 71010; 80053; 81003; 83605; 84484; 85025; 85610; 85730; 87040; 87502; 93005; 94640; 94760; A9270-GY; J0456; J0696; J1644; J2930; J7512

== ENCOUNTER 2018-08-07 23:08 | Inpatient (IN) | payer MEDICARE, BC ==
[2018-08-07] MEDS ORDERED: Albuterol/Ipratropium NEB.SOL* Albuterol 2.5 MG/Ipratropium 0.5 MG 3 ML INH ONE (23:38)
[2018-08-07] MEDS ORDERED: methylPREDNISolone 125 MG* 2 ML VIAL IV ONE (23:38)
[2018-08-07] MEDS ORDERED: Magnesium Sulfate 2 GM IV* 2 GM/50 ML BAG IVPB ONE (23:39)
[2018-08-08] MEDS ORDERED: Albuterol 2.5 MG/3 ML NEB.SOL* (0.083%) INH ONE (00:04)
[2018-08-08] MEDS: Albuterol 2.5 MG/3 ML NEB.SOL* (0.083%) INH SCH ×5 (00:06→20:01)
[2018-08-08 00:18] LABS: ABS Lymphocytes 0.4 10^3/ul (1.0-4.8); ABS Monocytes 0.3 10^3/ul (0-0.8); ABS Neutrophils 19.2 10^3/ul (1.5-7.7); Hematocrit 38 % (35-47); Hemoglobin 12.5 g/dL (12.0-16.0); Mean Corpuscular HGB Conc 33 g/dL (31-36); Mean Corpuscular Hemoglobin 29 pg (27-31); Mean Corpuscular Volume 88 fL (80-97); Mean Platelet Volume 8.4 fL (7.4-10.4); Platelet Count 287 10^3/uL (150-450); Red Blood Count 4.36 10^6 /uL (3.70-4.87); Red Cell Distribution Width 14 % (10-15)
[2018-08-08 00:35] LABS: Albumin 4.3 g/dL (3.2-5.2); Albumin/Globulin Ratio 1.5 (1-3); BUN/Creatinine Ratio 16.9 (8-20); C Reactive Protein 50.89 mg/L (<8.01); Calcium 9.3 mg/dL (8.6-10.3); EGFR African American 96.8 (>60); Globulin 2.8 g/dL (2-4); Potassium 3.7 mmol/L (3.5-5.0); Total Bilirubin 0.4 mg/dL (0.2-1.0); Total Protein 7.1 g/dL (6.4-8.9)
[2018-08-08 00:37] LABS: Activated Partial Thrombo Time 31.3 seconds (26.0-38.0); INR 0.97 (0.82-1.09)
[2018-08-08] MEDS ORDERED: NS 0.9% 1000 ML** 1,000 ML IV ONE (00:51)
[2018-08-08] MEDS ORDERED: Diltiazem IV push/loading dose 5 MG/ML 5 ML vial (25 mg) IV SLOW PU ONE (00:59)
[2018-08-08] MEDS ORDERED: Levofloxacin 750 MG IVPREMIX(* 750 MG/150 ML BAG IVPB ONE (01:00)
[2018-08-08] MEDS ORDERED: Acetaminophen TAB* 325 MG PO ONE (01:00)
[2018-08-08] MEDS ORDERED: Enoxaparin(*) 80 MG/0.8 ML SYR SUBCUT ONE (01:31)
--- NOTE | 2018-08-08 01:33 | ED ---
Shortness of Breath - HPI Summary HPI Summary: Patient is a 78 y/o F presenting to ED via EMS with complaints of SOB. SOB onset 08/06/18 and has persisted. She reports taking 40 mg prednisone at 1800 with minimal relief in Sx. She additionally states that she has taken nebulizer treatments during the past few days with no relief and took one prior to EMS arrival. Patient wears 2 L of o2 at home. Chest pain, N/V/D, TEJEDA and dizziness are denied. On triage, pain is denied. Nothing is noted to aggravate/ alleviate Sx. Home medications and allergies are reviewed. - History of Current Complaint Chief Complaint: EDShortnessOfBreath Time Seen by Provider: 08/07/18 23:29 Hx Obtained From: Patient Onset/Duration: Lasting Days - since 08/06/18, Still Present Timing: Constant Current Severity: None Aggravating Factors: Nothing Alleviating Factors: Nothing Associated Signs & Symptoms: Negative - Allergy/Home Medications Allergies/Adverse Reactions: Allergies Allergy/AdvReac Type Severity Reaction Status Date / Time tetanus toxoid, adsorbed Allergy Swelling Verified 08/08/18 00:21 diazepam AdvReac Intermediate Agitation Verified 08/08/18 00:21 tetracycline AdvReac Intermediate Blurred Verified 08/08/18 00:21 Vision iv contrast Allergy Severe See Comment Uncoded 11/03/16 08:40 Home Medications: Home Medications ALPRAZolam [Alprazolam] 0.25 mg PO BID 08/08/18 [History Confirmed 08/08/18] Albuterol HFA INHALER* [Ventolin HFA Inhaler*] 2 puff INH Q4H PRN 08/08/18 [ History Confirmed 08/08/18] Ascorbic Acid TAB* [Vitamin C TAB*] 500 mg PO DAILY 08/08/18 [History Confirmed 08/08/18] Aspirin [Aspirin EC] 81 mg PO DAILY 08/08/18 [History Confirmed 08/08/18] Ibuprofen TAB* [Motrin TAB* 600 MG] 600 mg PO Q8H PRN 08/08/18 [History Confirmed 08/08/18] Levothyroxine TAB* [Synthroid TAB*] 137 mcg PO DAILY 08/08/18 [History Confirmed 08/08/18] Multivitamins/Minerals TAB* [Theragran/minerals TAB*] 1 tab PO DAILY 08/08/18 [ History Confirmed 08/08/18] PMH/Surg Hx/FS Hx/Imm Hx Endocrine/Hematology History: Reports: Hx Thyroid Disease - HYPOTHYROID Respiratory History: Reports: Hx Chronic Obstructive Pulmonary Disease (COPD), Other Respiratory Problems/Disorders - O2 2 LITERS NASAL CANNULA Denies: Hx Asthma GI History: Reports: Hx Gastroesophageal Reflux Disease - ON PRILOSEC FOR, Other GI Disorders - 3 MONTHS AGO- DX WITH DIVERTICULITIS Musculoskeletal History: Reports: Hx Arthritis, Other Musculoskeletal History - Hernited disc L3-L5 & cervical spine Sensory History: Reports: Hx Cataracts - BILATERAL Denies: Hx Contacts or Glasses, Hx Hearing Aid Opthamlomology History: Reports: Hx Cataracts - BILATERAL Denies: Hx Contacts or Glasses Psychiatric History: Reports: Hx Anxiety - ON MEDICATION FOR - Cancer History Hx Chemotherapy: No Hx Radiation Therapy: No - Surgical History Surgery Procedure, Year, and Place: 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 D&C at age 20, 196 Hx Anesthesia Reactions: No Infectious Disease History: No Infectious Disease History: Denies: Traveled Outside the [place] in Last 30 Days - Family History Known Family History: Positive: Other - Yes- Breast CA - Social History Alcohol Use: Weekly Alcohol Amount: 1 glass wine Substance Use Type: Reports: None Smoking Status (MU): Former Smoker Type: Cigarettes Amount Used/How Often: 1 PPD X 50 YEARS Have You Smoked in the Last Year: No Review of Systems Negative: Chest Pain Positive: Shortness Of Breath Negative: Vomiting, Diarrhea, Nausea Neurological: Other - negative - dizziness Negative: Headache All Other Systems Reviewed And Are Negative: Yes Physical Exam - Summary Physical Exam Summary: VITAL SIGNS: Reviewed. GENERAL: Patient is a well-developed and nourished female who is lying comfortable in the stretcher. Patient is not in any acute respiratory distress. HEAD AND FACE: No signs of trauma. No ecchymosis, hematomas or skull depressions. No sinus tenderness. EYES: PERRLA, EOMI x 2, No injected conjunctiva, no nystagmus. EARS: Hearing grossly intact. Ear canals and tympanic membranes are within normal limits. MOUTH: Oropharynx within normal limits. NECK: Supple, trachea is midline, no adenopathy, no JVD, no carotid bruit, no c- spine tenderness, neck with full ROM CHEST: Symmetric, no tenderness at palpation LUNGS: Decreased breath sounds bilaterally. No wheezing or crackles. CVS: Tachycardic, S1 and S2 present, no murmurs or gallops appreciated. ABDOMEN: Soft, non-tender. No signs of distention. No rebound no guarding, and no masses palpated. Bowel sounds are normal. EXTREMITIES: FROM in all major joints, no edema, no cyanosis or clubbing. NEURO: Alert and oriented x 3. No acute neurological deficits. Speech is normal and follows commands. SKIN: Dry and warm Triage Information Reviewed: Yes Vital Signs On Initial Exam: Initial Vitals Temp Pulse Resp BP Pulse Ox 98.3 F 141 36 188/94 95 08/07/18 23:21 08/07/18 23:21 08/07/18 23:21 08/07/18 23:21 08/07/18 23:21 Vital Signs Reviewed: Yes Diagnostics - Vital Signs Vital Signs Temp Pulse Resp BP Pulse Ox 08/08/18 01:19 100 F 08/08/18 01:00 132 25 96 08/08/18 00:57 135 26 144/103 95 08/08/18 00:27 127 24 140/100 98 08/08/18 00:16 124 20 99 08/08/18 00:09 123 23 98 08/08/18 00:00 123 27 96 08/07/18 23:57 125 24 141/81 95 08/07/18 23:29 131 96 08/07/18 23:28 142 188/94 95 08/07/18 23:21 98.3 F 141 36 188/94 95 - Laboratory Lab Results: Lab Results 08/08/18 08/08/18 08/08/18 Range/Units 00:09 00:09 00:09 WBC 20.0 H (3.5-10.8) 10^3/uL RBC 4.36 (3.70-4.87) 10^6 /uL Hgb 12.5 (12.0-16.0) g/dL Hct 38 (35-47) % MCV 88 (80-97) fL MCH 29 (27-31) pg MCHC 33 (31-36) g/dL RDW 14 (10-15) % Plt Count 287 (150-450) 10^3/uL MPV 8.4 (7.4-10.4) fL Neut % (Auto) 96.3 % Lymph % (Auto) 2.0 % Jay % (Auto) 1.5 % Eos % (Auto) 0.0 % Baso % (Auto) 0.2 % Absolute Neuts (auto) 19.2 H (1.5-7.7) 10^3/ul Absolute Lymphs (auto) 0.4 L (1.0-4.8) 10^3/ul Absolute Monos (auto) 0.3 (0-0.8) 10^3/ul Absolute Eos (auto) 0.0 (0-0.6) 10^3/ul Absolute Basos (auto) 0.0 (0-0.2) 10^3/ul Absolute Nucleated RBC 0.0 10^3/ul Nucleated RBC % 0.0 INR (Anticoag Therapy) 0.97 (0.82-1.09) APTT 31.3 (26.0-38.0) seconds Sodium 135 (135-145) mmol/L Potassium 3.7 (3.5-5.0) mmol/L Chloride 102 (101-111) mmol/L Carbon Dioxide 26 (22-32) mmol/L Anion Gap 7 (2-11) mmol/L BUN 12 (6-24) mg/dL Creatinine 0.71 (0.51-0.95) mg/dL Est GFR ( Amer) 96.8 (>60) Est GFR (Non-Af Amer) 80.0 (>60) BUN/Creatinine Ratio 16.9 (8-20) Glucose 244 H (70-100) mg/dL Calcium 9.3 (8.6-10.3) mg/dL Total Bilirubin 0.40 (0.2-1.0) mg/dL AST 16 (13-39) U/L ALT 15 (7-52) U/L Alkaline Phosphatase 83 (34-104) U/L Troponin I 0.00 (<0.04) ng/mL C-Reactive Protein 50.89 H (<8.01) mg/L B-Natriuretic Peptide (<=100) pg/mL Total Protein 7.1 (6.4-8.9) g/dL Albumin 4.3 (3.2-5.2) g/dL Globulin 2.8 (2-4) g/dL Albumin/Globulin Ratio 1.5 (1-3) 08/08/18 Range/Units 00:09 WBC (3.5-10.8) 10^3/uL RBC (3.70-4.87) 10^6 /uL Hgb (12.0-16.0) g/dL Hct (35-47) % MCV (80-97) fL MCH (27-31) pg MCHC (31-36) g/dL RDW (10-15) % Plt Count (150-450) 10^3/uL MPV (7.4-10.4) fL Neut % (Auto) % Lymph % (Auto) % Jay % (Auto) % Eos % (Auto) % Baso % (Auto) % Absolute Neuts (auto) (1.5-7.7) 10^3/ul Absolute Lymphs (auto) (1.0-4.8) 10^3/ul Absolute Monos (auto) (0-0.8) 10^3/ul Absolute Eos (auto) (0-0.6) 10^3/ul Absolute Basos (auto) (0-0.2) 10^3/ul Absolute Nucleated RBC 10^3/ul Nucleated RBC % INR (Anticoag Therapy) (0.82-1.09) APTT (26.0-38.0) seconds Sodium (135-145) mmol/L Potassium (3.5-5.0) mmol/L Chloride (101-111) mmol/L Carbon Dioxide (22-32) mmol/L Anion Gap (2-11) mmol/L BUN (6-24) mg/dL Creatinine (0.51-0.95) mg/dL Est GFR ( Amer) (>60) Est GFR (Non-Af Amer) (>60) BUN/Creatinine Ratio (8-20) Glucose (70-100) mg/dL Calcium (8.6-10.3) mg/dL Total Bilirubin (0.2-1.0) mg/dL AST (13-39) U/L ALT (7-52) U/L Alkaline Phosphatase (34-104) U/L Troponin I (<0.04) ng/mL C-Reactive Protein (<8.01) mg/L B-Natriuretic Peptide 33 (<=100) pg/mL Total Protein (6.4-8.9) g/dL Albumin (3.2-5.2) g/dL Globulin (2-4) g/dL Albumin/Globulin Ratio (1-3) Result Diagrams: 08/08/18 00:09 08/08/18 00:09 Lab Statement: Any lab studies that have been ordered have been reviewed, and results considered in the medical decision making process. - Radiology CXR Radiology Interpretation Completed By: ED Physician Summary of Radiographic Findings: CXR: hyperinflation, no acute process, pending official report. - EKG 2332 Cardiac Rate: Tachycardia - rate of 103 BPM EKG Rhythm: Sinus Tachycardia Summary of EKG Findings: EKG showed sinus tachycardia with rate of 103 BPM, Q- waves in inferior leads. Course/Dx - Course Course Of Treatment: Patient is a 78 y/o F presenting to ED via EMS with complaints of SOB. SOB onset 08/06/18 and has persisted. She reports taking 40 mg prednisone at 1800 08/07 with minimal relief in Sx. She additionally states that she has taken nebulizer treatments during the past few days with no relief and took one prior to EMS arrival. Patient wears 2 L of o2 at home. Chest pain, N/V/D, TEJEDA and dizziness are denied. On physical exam, decreased breath sounds bilaterally, tachycardic. EKG showed sinus tachycardia with rate of 103 BPM, Q- waves in inferior leads. CXR: hyperinflation, no acute process. Labs showed WBC 20, absolute neuts 19.2, absolute lymphs 0.4, glucose 244, CRP 50.89, trop 0. During ED course, patient received fluids, solu-medrol 125 mg IV, magnesium sulfate 2 gm in 50 mls @ 50 mls/hr IVPB, leavquin 750 mg in 150 mls @ 100 mls/ hr IVPB, diltiazem 20 mg IV, duoneb 1 neb, two doses of albuterol, and Tylenol 975 mg PO. Patient is tachycardic. She states she cannot get IV contrast for CTA due to allergies. Patient was given one dose Lovenox, 80 mg, for presumptive PE until she gets a VQ scan in the morning. 0133 - Patient's case was discussed with Dr. Butler, Dr. Butler accepts for admission. Patient is agreeable with admission - Diagnoses Provider Diagnoses: COPD exacerbation, Tachycardia - Physician Notifications Discussed Care of Patient With: Lani Butler Time Discussed With Above Provider: 01:33 Instructed by Provider To: Other - 0133 - Patient's case was discussed with Dr. Butler, Dr. Butler accepts for admission. Discharge - Sign-Out/Discharge Documenting (check all that apply): Patient Departure - admit All imaging exams completed and their final reports reviewed: Yes Patient Received Moderate/Deep Sedation with Procedure: No - Discharge Plan Condition: Fair Disposition: ADMITTED TO [facility] - Attestation Statements Document Initiated by Scribe: Yes Documenting Scribe: MELISSA LOMELI Provider For Whom Scribe is Documenting (Include Credential): CECILY OGDEN MD Scribe Attestation: I, MELISSA LOMELI, scribed for CECILY OGDEN MD on 08/08/18 at 0431. Status of Scribe Document: Ready
[2018-08-08] MEDS ORDERED: Acetaminophen TAB* 325 MG PO PRN (02:09)
[2018-08-08] MEDS ORDERED: Albuterol/Ipratropium NEB.SOL* Albuterol 2.5 MG/Ipratropium 0.5 MG 3 ML INH PRN (02:09)
[2018-08-08] MEDS ORDERED: Al Hydrox/Mg Hydrox/Simet LIQ* 30 ML UDC PO PRN (02:09)
[2018-08-08] MEDS ORDERED: ALPRAZolam TAB* 0.5 MG PO PRN (02:12)
[2018-08-08] MEDS ORDERED: Albuterol HFA INHALER* 8 gm MDI INH PRN (02:12)
[2018-08-08] MEDS ORDERED: methylPREDNISolone SOD 40 MG* 1 ML VIAL IV SCH (03:00)
--- NOTE | 2018-08-08 05:47 | HP ---
CC: Cortes Conde NP; Dr. Bunch * HISTORY AND PHYSICAL: DATE OF ADMISSION: 08/08/18 PRIMARY CARE PROVIDER: Cortes Conde NP SYSTEM ADMINISTRATOR: Dr. Bunch. CHIEF COMPLAINT: Shortness of breath. HISTORY OF PRESENT ILLNESS: Sharron Palmer is a 78-year-old female with history of oxygen-dependent COPD, usually uses 2 L of oxygen, who stated that her was cutting some pine trees next to their house yesterday, and since then, she had been short of breath, and today, she started coughing up yellow sputum. She had been afebrile, but she started wheezing and be more dyspneic, and she decided to take 2 tablets of 20 mg of prednisone each. Subsequently, she called 911 and came into the ED for evaluation. The patient has COPD exacerbation. She is going to be placed on overnight observation. She denies any recent fevers. She has had no recent travels or sick contacts. PAST MEDICAL HISTORY: 1. History of oxygen-dependent COPD, on oxygen 2 L. 2. Hypertension. 3. Hypothyroidism. 4. Gastroesophageal reflux disease. 5. Anxiety. 6. History of an 0.8 cm lung nodule that is being followed by Dr. Bunch. MEDICATIONS: Home medications include: 1. Ibuprofen on a p.r.n. basis, 800 mg daily. 2. Senna 1 tablet daily p.r.n. 3. Vitamin D3 1000 units daily. 4. Vitamin C 500 mg daily. 5. Multivitamins 1 tablet daily. 6. Albuterol inhaler on a p.r.n. basis. 7. Albuterol nebulizers every 6 hours p.r.n. 8. Levothyroxine 137 mcg daily. 9. Alprazolam 0.25 mg up to 3 times a day. 10. Spiriva 1 inhalation daily. 11. Advair 250/50 one inhalation b.i.d. ALLERGIES: Include TETANUS VACCINE, DIAZEPAM, but she is okay on alprazolam, TETRACYCLINES, and IV CONTRAST. FAMILY HISTORY: Positive for history of lung cancer in both two brothers, two sisters, and the patient's father. The patient's father of lung cancer at age of 46. The patient's mother in her 80s and she had history of alcoholism. SOCIAL HISTORY: The patient quit smoking 8 years ago. She denies any current alcohol or drug use. She lives with her , Armando, who likes to be called Vivke. His phone number is [phone]. Vivek is her surrogate. REVIEW OF SYSTEMS: Please see history of present illness. All the remaining review of systems are completed and apart from the above mentioned were negative. PHYSICAL EXAMINATION GENERAL: The patient is a very pleasant 78-year-old female who is in no acute distress, alert, awake, and oriented x3. VITAL SIGNS: Blood pressure of 155/70, heart rate of 117 and regular, respiratory rate 24, oxygen saturation 97% on 3 L of oxygen nasal cannula, temperature 100 rectally. HEENT: Head atraumatic and normocephalic. Eyes: Pupils are equal, round, and reactive to light and accommodation. Oropharynx clear. Mucosa moist. NECK: Supple. No JVD, no bruits bilaterally. RESPIRATORY: Distant breath sounds bilaterally with scattered wheezes throughout bilateral lungs. CARDIOVASCULAR: Regular rhythm. Tachycardia. No murmur. ABDOMEN: Soft and nontender. Bowel sounds present in all 4 quadrants. EXTREMITIES: There is no edema. Pulses are +2 bilaterally. No clubbing or cyanosis. NEURO EVALUATION: Speech is clear. Cranial nerves II through XII are grossly intact. Motor strength is 5/5 bilaterally. LABORATORY DATA: Show white blood cell count of 20.0, hemoglobin of 12.5, hematocrit of 38, and platelets of 287. Sodium of 135, potassium 3.7, chloride 102, carbon dioxide 26, BUN 12, creatinine 0.7. Liver function tests unremarkable. C-reactive of 50. The patient's EKG showed sinus tachycardia with a heart rate of 130 beats per minute with Q waves in lead III and aVF, which is chronic. The patient's portable chest x-ray, reviewed by myself prior to official radiologist report, shows no evidence of infiltrate. ASSESSMENT AND PLAN: 1. The patient is in chronic obstructive pulmonary disease exacerbation and she is going to be placed on overnight observation. Steroids started in the ED are going to be continued as well as the patient is going to be treated with ceftriaxone and azithromycin. The Levaquin that was started in the ED will be stopped. We will also obtain the patient's sputum cultures. 2. In terms of patient's hypothyroidism, her levothyroxine is going to be continued. 3. The patient has a history of anxiety and alprazolam is going to be provided as at home. 4. For DVT prophylaxis, the patient is going to be placed on heparin subcutaneously. 5. The patient's code status is full. Her surrogate is her . TIME SPENT: Approximately 62 minutes was spent on the admission of this patient , more than half the time was spent [id number] with the patient during the interview and physical exam. [id number]/CPS #: [id number] KEVIN
[2018-08-08] MEDS ORDERED: Heparin VIAL(*) 5000 UNITS/ML VIAL (FIVE THOUSAND) SUBCUT SCH ×2 (06:00→13:00)
[2018-08-08] MEDS: Mometasone/Formoter 200/5 MDI INH SCH ×2 (07:06→20:01)
[2018-08-08] MEDS: Tiotropium CAP.INH* CAP.INH/18 MCG (USE ORDER SET !) INH SCH (07:06)
[2018-08-08] MEDS ORDERED: Docusate CAP* 100 MG PO SCH (09:00)
[2018-08-08] MEDS ORDERED: Spiriva Inhaler DEVICE* 1 EACH DEVICE INH ONE (09:00)
[2018-08-08] MEDS: Cholecalciferol TAB* 1000 UNITS PO SCH (09:08)
[2018-08-08] MEDS: Docusate CAP* 100 MG PO SCH (09:08)
[2018-08-08] MEDS: Ascorbic Acid TAB* 500 MG PO SCH (09:08)
[2018-08-08] MEDS: Senna TAB PO SCH (09:08)
[2018-08-08] MEDS: cefTRIAXone(*) 1 GM in NS 0.9% 50 ML* 50 ML IVPB SCH (09:08)
[2018-08-08] MEDS: Aspirin EC TAB* 81 MG TAB.EC PO SCH (09:08)
[2018-08-08] MEDS: methylPREDNISolone SOD 40 MG* 1 ML VIAL IV SCH ×2 (09:17→20:57)
[2018-08-08] MEDS: Levothyroxine TAB* 137 MCG TAB PO SCH (09:17)
[2018-08-08] MEDS: Pantoprazole TAB * 40 MG TAB PO SCH (09:18)
[2018-08-08] MEDS: ALPRAZolam TAB* 0.25 MG PO PRN ×2 (12:31→21:02)
--- NOTE | 2018-08-08 18:54 | PN ---
Subjective Date of Service: 08/08/18 Interval History: Patient seen and examined. States she has cough, starting to loosen up, but remains primarily unproductive. Had subjective fever at home but none here. Remains on O2, denies acute SOB, no chest pain, no chills. Objective Active Medications: Acetaminophen (Tylenol Tab*) 650 mg PO Q4H PRN PRN Reason: FEVER/PAIN Last Admin: 08/08/18 12:25 Dose: 650 mg Al Hydrox/Mg Hydrox/Simethicone (Maalox Plus*) 30 ml PO Q6H PRN PRN Reason: INDIGESTION Albuterol (Ventolin 2.5 Mg/3 Ml Neb.Juanita*) 2.5 mg INH [id number] AWAKE [facility] Last Admin: 08/08/18 13:25 Dose: 2.5 mg Albuterol (Ventolin Hfa Inhaler*) 2 puff INH Q4H PRN PRN Reason: SHORTNESS OF BREATH Albuterol/Ipratropium (Duoneb (Albuterol 2.5 Mg/Ipratropium 0.5 Mg)) 1 neb INH [id number] AWAKE PRN PRN Reason: sob/wheexing Alprazolam (Xanax Tab*) 0.25 mg PO TID PRN PRN Reason: ANXIETY Last Admin: 08/08/18 12:31 Dose: 0.25 mg Ascorbic Acid (Vitamin C Tab*) 500 mg PO DAILY [facility] Last Admin: 08/08/18 09:08 Dose: 500 mg Aspirin (Aspirin Ec Tab*) 81 mg PO DAILY [facility] Last Admin: 08/08/18 09:08 Dose: 81 mg Cholecalciferol (Vitamin D Tab*) 1,000 units PO DAILY [facility] Last Admin: 08/08/18 09:08 Dose: 1,000 units Docusate Sodium (Colace Cap*) 100 mg PO DAILY [facility] Last Admin: 08/08/18 09:08 Dose: 100 mg Heparin Sodium (Porcine) (Heparin Vial(*)) 5,000 units SUBCUT 0600,1400,2200 [facility] Azithromycin (Zithromax 500 Mg/250 Ml) 500 mg in 250 mls @ 250 mls/hr IVPB Q24H [facility] Ceftriaxone Sodium 1 gm/ (Sodium Chloride) 50 mls @ 200 mls/hr IVPB Q24H [facility] Last Admin: 08/08/18 09:08 Dose: 200 mls/hr Levothyroxine Sodium (Synthroid Tab*) 137 mcg PO DAILY@0600 [facility] Last Admin: 08/08/18 09:17 Dose: 137 mcg Methylprednisolone Sodium Succinate (Solu-Medrol 40 Mg) 40 mg IV Q12H [facility] Last Admin: 08/08/18 09:17 Dose: 40 mg Mometasone Furoate/Formoterol Fumar (Dulera 200/5 Mdi*) 2 puff INH BID [facility] Last Admin: 08/08/18 07:06 Dose: 2 puff Pantoprazole Sodium (Protonix Tab*) 40 mg PO DAILY [facility] Last Admin: 08/08/18 09:18 Dose: 40 mg Senna (Senokot Tab*) 1 tab PO DAILY [facility] Last Admin: 08/08/18 09:08 Dose: 1 tab Tiotropium Aurora (Spiriva Cap.Inh*) 1 cap INH DAILY [facility] Last Admin: 08/08/18 07:06 Dose: 1 cap Zolpidem Tartrate (Ambien Tab*) 5 mg PO BEDTIME PRN PRN Reason: INSOMNIA Vital Signs - 8 hr 08/08/18 08/08/18 08/08/18 11:00 12:31 15:24 Temperature 98.5 F 98.2 F Pulse Rate 96 92 Respiratory 24 22 18 Rate Blood Pressure 138/61 111/56 (mmHg) O2 Sat by Pulse 96 97 Oximetry Oxygen Devices in Use Now: Nasal Cannula Appearance: alert, NAD Eyes: No Scleral Icterus, PERRLA Ears/Nose/Mouth/Throat: NL Teeth, Lips, Gums, Mucous Membranes Moist Neck: NL Appearance and Movements; NL JVP, Trachea Midline Respiratory: Symmetrical Chest Expansion and Respiratory Effort, - - bilateral exp wheeze, L>R Cardiovascular: NL Sounds; No Murmurs; No JVD, RRR, No Edema Abdominal: NL Sounds; No Tenderness; No Distention Extremities: No Edema, No Clubbing, Cyanosis Skin: No Rash or Ulcers Neurological: Alert and Oriented x 3, NL Sensation Nutrition: Taking PO's Result Diagrams: 08/08/18 00:09 08/08/18 00:09 Additional Lab and Data: Lab Results 08/08/18 08/08/18 08/08/18 Range/Units 00:09 00:09 00:09 WBC 20.0 H (3.5-10.8) 10^3/uL RBC 4.36 (3.70-4.87) 10^6 /uL Hgb 12.5 (12.0-16.0) g/dL Hct 38 (35-47) % MCV 88 (80-97) fL MCH 29 (27-31) pg MCHC 33 (31-36) g/dL RDW 14 (10-15) % Plt Count 287 (150-450) 10^3/uL MPV 8.4 (7.4-10.4) fL Neut % (Auto) 96.3 % Lymph % (Auto) 2.0 % [place] % (Auto) 1.5 % Eos % (Auto) 0.0 % Baso % (Auto) 0.2 % Absolute Neuts (auto) 19.2 H (1.5-7.7) 10^3/ul Absolute Lymphs (auto) 0.4 L (1.0-4.8) 10^3/ul Absolute Monos (auto) 0.3 (0-0.8) 10^3/ul Absolute Eos (auto) 0.0 (0-0.6) 10^3/ul Absolute Basos (auto) 0.0 (0-0.2) 10^3/ul Absolute Nucleated RBC 0.0 10^3/ul Nucleated RBC % 0.0 INR (Anticoag Therapy) 0.97 (0.82-1.09) APTT 31.3 (26.0-38.0) seconds Sodium 135 (135-145) mmol/L Potassium 3.7 (3.5-5.0) mmol/L Chloride 102 (101-111) mmol/L Carbon Dioxide 26 (22-32) mmol/L Anion Gap 7 (2-11) mmol/L BUN 12 (6-24) mg/dL Creatinine 0.71 (0.51-0.95) mg/dL Est GFR ( Amer) 96.8 (>60) Est GFR (Non-Af Amer) 80.0 (>60) BUN/Creatinine Ratio 16.9 (8-20) Glucose 244 H (70-100) mg/dL Calcium 9.3 (8.6-10.3) mg/dL Total Bilirubin 0.40 (0.2-1.0) mg/dL AST 16 (13-39) U/L ALT 15 (7-52) U/L Alkaline Phosphatase 83 (34-104) U/L Troponin I 0.00 (<0.04) ng/mL C-Reactive Protein 50.89 H (<8.01) mg/L B-Natriuretic Peptide (<=100) pg/mL Total Protein 7.1 (6.4-8.9) g/dL Albumin 4.3 (3.2-5.2) g/dL Globulin 2.8 (2-4) g/dL Albumin/Globulin Ratio 1.5 (1-3) 08/08/18 Range/Units 00:09 WBC (3.5-10.8) 10^3/uL RBC (3.70-4.87) 10^6 /uL Hgb (12.0-16.0) g/dL Hct (35-47) % MCV (80-97) fL MCH (27-31) pg MCHC (31-36) g/dL RDW (10-15) % Plt Count (150-450) 10^3/uL MPV (7.4-10.4) fL Neut % (Auto) % Lymph % (Auto) % [place] % (Auto) % Eos % (Auto) % Baso % (Auto) % Absolute Neuts (auto) (1.5-7.7) 10^3/ul Absolute Lymphs (auto) (1.0-4.8) 10^3/ul Absolute Monos (auto) (0-0.8) 10^3/ul Absolute Eos (auto) (0-0.6) 10^3/ul Absolute Basos (auto) (0-0.2) 10^3/ul Absolute Nucleated RBC 10^3/ul Nucleated RBC % INR (Anticoag Therapy) (0.82-1.09) APTT (26.0-38.0) seconds Sodium (135-145) mmol/L Potassium (3.5-5.0) mmol/L Chloride (101-111) mmol/L Carbon Dioxide (22-32) mmol/L Anion Gap (2-11) mmol/L BUN (6-24) mg/dL Creatinine (0.51-0.95) mg/dL Est GFR ( Amer) (>60) Est GFR (Non-Af Amer) (>60) BUN/Creatinine Ratio (8-20) Glucose (70-100) mg/dL Calcium (8.6-10.3) mg/dL Total Bilirubin (0.2-1.0) mg/dL AST (13-39) U/L ALT (7-52) U/L Alkaline Phosphatase (34-104) U/L Troponin I (<0.04) ng/mL C-Reactive Protein (<8.01) mg/L B-Natriuretic Peptide 33 (<=100) pg/mL Total Protein (6.4-8.9) g/dL Albumin (3.2-5.2) g/dL Globulin (2-4) g/dL Albumin/Globulin Ratio (1-3) Microbiology and Other Data: Microbiology 08/08/18 12:50 Gram Stain - Final Sputum Diagnostic Imaging: Patient Name: SAM CORNJEO Medical Record#: [id number] Ordering Physician: Evelio Gray MD Acct.#: [id number] : 1940 Age: 78 Sex: F Location: [address] [place] [address] - MEDICAL Exam Date: 08/07/18 ADM Status: ADM Diane Order Information: CHEST AP OR PORT Accession Number: [id number] CPT: 13573 Indication: Shortness of breath. Single frontal view of the chest performed at 0011 hours was reviewed. Comparison is made with previous exam dated August 03, 2016. Hyperinflated lung gongora are noted. No pleural fluid, pneumonia or pneumothorax is noted. IMPRESSION: NO ACTIVE CARDIOPULMONARY DISEASE IS NOTED. <Electronically signed by Alaina Hinojosa MD in [facility]> 08/08/18801 Dictated By: Alaina Hinojosa MD Dictated Date/Time: 08/08/18 08 Transcribed Date/Time: 08/08/18 5378 Copy to: Assess/Plan/Problems-Billing Assessment: This is a 78 year ol female patient with history of COPD that presented to the ER with complaints of fever and SOB, admitted for exacerbation of COPD. - Patient Problems (1) COPD with exacerbation Code(s): J44.1 - CHRONIC OBSTRUCTIVE PULMONARY DISEASE W (ACUTE) EXACERBATION SNOMED Code(s): 865417970 Comment: - Started on azithromycin and ceftriaxone - CXR as above, no obvious consolidation but considering subjective fever with leukocytosis, will continue ceftriaxone with azithro - Continue duonebs Q6h scheduled, inhalers, IV solumedrol Q12h - Mucinex BID - Flutter valve with nebs Q6h (2) Anxiety Code(s): F41.9 - ANXIETY DISORDER, UNSPECIFIED SNOMED Code(s): 44190092 Comment: - Xanax prn (3) GERD (gastroesophageal reflux disease) Code(s): K21.9 - GASTRO-ESOPHAGEAL REFLUX DISEASE WITHOUT ESOPHAGITIS SNOMED Code(s): 440186748 Comment: - PPI (4) Hypothyroidism Code(s): E03.9 - HYPOTHYROIDISM, UNSPECIFIED SNOMED Code(s): 72498646 Comment: - Continue levothyroxine (5) DVT prophylaxis Code(s): BMA1918 - SNOMED Code(s): 664410681 Comment: - SQ heparin (6) Full code status Code(s): Z78.9 - OTHER SPECIFIED HEALTH STATUS SNOMED Code(s): 277508095 Status and Disposition: Inpatient for IV steroids and antibiotics, anticipated DC to home in 2-3 days if medically optimized.
[2018-08-08] MEDS ORDERED: Albuterol/Ipratropium NEB.SOL* Albuterol 2.5 MG/Ipratropium 0.5 MG 3 ML INH SCH (19:00)
[2018-08-08] MEDS: guaiFENesin ER TAB 600 MG PO SCH (20:57)
[2018-08-08] MEDS: Zolpidem TAB* 5 MG PO PRN (20:57)
[2018-08-08] MEDS: Heparin VIAL(*) 5000 UNITS/ML VIAL (FIVE THOUSAND) SUBCUT SCH (20:57)
[2018-08-09] MEDS: Albuterol 2.5 MG/3 ML NEB.SOL* (0.083%) INH SCH (01:32)
[2018-08-09] MEDS: Levothyroxine TAB* 137 MCG TAB PO SCH (05:06)
[2018-08-09] MEDS: Heparin VIAL(*) 5000 UNITS/ML VIAL (FIVE THOUSAND) SUBCUT SCH ×3 (05:06→22:52)
[2018-08-09] MEDS: ALPRAZolam TAB* 0.25 MG PO PRN ×2 (05:06→22:47)
[2018-08-09] MEDS: Azithromycin 500 mg/250 ml NS 500 MG/250 ML BAG IVPB SCH (05:07)
[2018-08-09 07:13] LABS: ABS Lymphocytes 0.8 10^3/ul (1.0-4.8); ABS Neutrophils 16.7 10^3/ul (1.5-7.7); Hematocrit 32 % (35-47); Hemoglobin 10.7 g/dL (12.0-16.0); Lymphocyte % 4.5 %; Mean Corpuscular HGB Conc 34 g/dL (31-36); Mean Corpuscular Hemoglobin 30 pg (27-31); Mean Corpuscular Volume 88 fL (80-97); Mean Platelet Volume 9.1 fL (7.4-10.4); Platelet Count 240 10^3/uL (150-450); Red Blood Count 3.61 10^6 /uL (3.70-4.87); Red Cell Distribution Width 14 % (10-15); White Blood Count 18.6 10^3/uL (3.5-10.8)
[2018-08-09 07:42] LABS: BUN/Creatinine Ratio 26.9 (8-20); Calcium 8.8 mg/dL (8.6-10.3); EGFR African American 103.5 (>60); EGFR Non-African American 85.6 (>60)
[2018-08-09 07:44] LABS: Potassium 5.2 mmol/L (3.5-5.0)
[2018-08-09] MEDS: methylPREDNISolone SOD 40 MG* 1 ML VIAL IV SCH ×2 (08:53→22:47)
[2018-08-09] MEDS: cefTRIAXone(*) 1 GM in NS 0.9% 50 ML* 50 ML IVPB SCH (08:53)
[2018-08-09] MEDS: Senna TAB PO SCH (08:54)
[2018-08-09] MEDS: Pantoprazole TAB * 40 MG TAB PO SCH (08:54)
[2018-08-09] MEDS: guaiFENesin ER TAB 600 MG PO SCH ×2 (08:54→22:44)
[2018-08-09] MEDS: Ascorbic Acid TAB* 500 MG PO SCH (08:54)
[2018-08-09] MEDS: Docusate CAP* 100 MG PO SCH (08:54)
[2018-08-09] MEDS: Aspirin EC TAB* 81 MG TAB.EC PO SCH (08:54)
[2018-08-09] MEDS: Cholecalciferol TAB* 1000 UNITS PO SCH (08:54)
[2018-08-09] MEDS: Tiotropium CAP.INH* CAP.INH/18 MCG (USE ORDER SET !) INH SCH (10:22)
[2018-08-09] MEDS: Mometasone/Formoter 200/5 MDI INH SCH ×2 (10:22→19:16)
[2018-08-09] MEDS: Albuterol 2.5 MG/3 ML NEB.SOL* (0.083%) INH PRN ×2 (14:49→19:16)
--- NOTE | 2018-08-09 17:05 | PN ---
Subjective Date of Service: 08/09/18 Interval History: Patient seen and examined. Feeling better, states less SOB, less wheeze and got some sleep last night. Ambien helped. continues with cough which she feels is more loose but still not very productive. Objective Active Medications: Acetaminophen (Tylenol Tab*) 650 mg PO Q4H PRN PRN Reason: FEVER/PAIN Last Admin: 08/08/18 12:25 Dose: 650 mg Al Hydrox/Mg Hydrox/Simethicone (Maalox Plus*) 30 ml PO Q6H PRN PRN Reason: INDIGESTION Albuterol (Ventolin Hfa Inhaler*) 2 puff INH Q4H PRN PRN Reason: SHORTNESS OF BREATH Albuterol (Ventolin 2.5 Mg/3 Ml Neb.Juanita*) 2.5 mg INH Q6H PRN PRN Reason: SOB/WHEEZING Last Admin: 08/09/18 14:49 Dose: 2.5 mg Alprazolam (Xanax Tab*) 0.25 mg PO TID PRN PRN Reason: ANXIETY Last Admin: 08/09/18 05:06 Dose: 0.25 mg Ascorbic Acid (Vitamin C Tab*) 500 mg PO DAILY [facility] Last Admin: 08/09/18 08:54 Dose: 500 mg Aspirin (Aspirin Ec Tab*) 81 mg PO DAILY [facility] Last Admin: 08/09/18 08:54 Dose: 81 mg Cholecalciferol (Vitamin D Tab*) 1,000 units PO DAILY [facility] Last Admin: 08/09/18 08:54 Dose: 1,000 units Docusate Sodium (Colace Cap*) 100 mg PO DAILY [facility] Last Admin: 08/09/18 08:54 Dose: 100 mg Guaifenesin (Mucinex*) 600 mg PO BID [facility] Last Admin: 08/09/18 08:54 Dose: 600 mg Heparin Sodium (Porcine) (Heparin Vial(*)) 5,000 units SUBCUT 0600,1400,2200 [facility] Last Admin: 08/09/18 13:56 Dose: 5,000 units Azithromycin (Zithromax 500 Mg/250 Ml) 500 mg in 250 mls @ 250 mls/hr IVPB Q24H [facility] Last Admin: 08/09/18 05:07 Dose: 250 mls/hr Ceftriaxone Sodium 1 gm/ (Sodium Chloride) 50 mls @ 200 mls/hr IVPB Q24H [facility] Last Admin: 08/09/18 08:53 Dose: 200 mls/hr Levothyroxine Sodium (Synthroid Tab*) 137 mcg PO DAILY@0600 [facility] Last Admin: 08/09/18 05:06 Dose: 137 mcg Methylprednisolone Sodium Succinate (Solu-Medrol 40 Mg) 40 mg IV Q12H [facility] Last Admin: 08/09/18 08:53 Dose: 40 mg Mometasone Furoate/Formoterol Fumar (Dulera 200/5 Mdi*) 2 puff INH BID [facility] Last Admin: 08/09/18 10:22 Dose: 2 puff Pantoprazole Sodium (Protonix Tab*) 40 mg PO DAILY [facility] Last Admin: 08/09/18 08:54 Dose: 40 mg Senna (Senokot Tab*) 1 tab PO DAILY [facility] Last Admin: 08/09/18 08:54 Dose: 1 tab Tiotropium [place] (Spiriva Cap.Inh*) 1 cap INH DAILY [facility] Last Admin: 08/09/18 10:22 Dose: 1 cap Zolpidem Tartrate (Ambien Tab*) 5 mg PO BEDTIME PRN PRN Reason: INSOMNIA Last Admin: 08/08/18 20:57 Dose: 5 mg Vital Signs - 8 hr 08/09/18 08/09/18 08/09/18 10:00 11:00 14:49 Temperature 98.5 F 98.1 F Pulse Rate 72 69 94 Respiratory 20 22 98 Rate Blood Pressure 114/57 120/52 (mmHg) O2 Sat by Pulse 99 97 18 Oximetry Oxygen Devices in Use Now: Nasal Cannula Appearance: alert, NAD Eyes: No Scleral Icterus, PERRLA Ears/Nose/Mouth/Throat: NL Teeth, Lips, Gums, Mucous Membranes Moist Neck: NL Appearance and Movements; NL JVP, Trachea Midline Respiratory: Symmetrical Chest Expansion and Respiratory Effort, - - improved air entry, no wheeze, diminished bilaterally at the bases Abdominal: NL Sounds; No Tenderness; No Distention Extremities: No Edema, No Clubbing, Cyanosis Skin: No Rash or Ulcers Neurological: Alert and Oriented x 3, NL Sensation Nutrition: Taking PO's Result Diagrams: 08/09/18 06:15 08/09/18 06:15 Additional Lab and Data: Lab Results 08/08/18 08/08/18 08/08/18 Range/Units 00:09 00:09 00:09 WBC 20.0 H (3.5-10.8) 10^3/uL RBC 4.36 (3.70-4.87) 10^6 /uL Hgb 12.5 (12.0-16.0) g/dL Hct 38 (35-47) % MCV 88 (80-97) fL MCH 29 (27-31) pg MCHC 33 (31-36) g/dL RDW 14 (10-15) % Plt Count 287 (150-450) 10^3/uL MPV 8.4 (7.4-10.4) fL Neut % (Auto) 96.3 % Lymph % (Auto) 2.0 % [place] % (Auto) 1.5 % Eos % (Auto) 0.0 % Baso % (Auto) 0.2 % Absolute Neuts (auto) 19.2 H (1.5-7.7) 10^3/ul Absolute Lymphs (auto) 0.4 L (1.0-4.8) 10^3/ul Absolute Monos (auto) 0.3 (0-0.8) 10^3/ul Absolute Eos (auto) 0.0 (0-0.6) 10^3/ul Absolute Basos (auto) 0.0 (0-0.2) 10^3/ul Absolute Nucleated RBC 0.0 10^3/ul Nucleated RBC % 0.0 INR (Anticoag Therapy) 0.97 (0.82-1.09) APTT 31.3 (26.0-38.0) seconds Sodium 135 (135-145) mmol/L Potassium 3.7 (3.5-5.0) mmol/L Chloride 102 (101-111) mmol/L Carbon Dioxide 26 (22-32) mmol/L Anion Gap 7 (2-11) mmol/L BUN 12 (6-24) mg/dL Creatinine 0.71 (0.51-0.95) mg/dL Est GFR ( Amer) 96.8 (>60) Est GFR (Non-Af Amer) 80.0 (>60) BUN/Creatinine Ratio 16.9 (8-20) Glucose 244 H (70-100) mg/dL Calcium 9.3 (8.6-10.3) mg/dL Total Bilirubin 0.40 (0.2-1.0) mg/dL AST 16 (13-39) U/L ALT 15 (7-52) U/L Alkaline Phosphatase 83 (34-104) U/L Troponin I 0.00 (<0.04) ng/mL C-Reactive Protein 50.89 H (<8.01) mg/L B-Natriuretic Peptide (<=100) pg/mL Total Protein 7.1 (6.4-8.9) g/dL Albumin 4.3 (3.2-5.2) g/dL Globulin 2.8 (2-4) g/dL Albumin/Globulin Ratio 1.5 (1-3) 08/08/18 Range/Units 00:09 WBC (3.5-10.8) 10^3/uL RBC (3.70-4.87) 10^6 /uL Hgb (12.0-16.0) g/dL Hct (35-47) % MCV (80-97) fL MCH (27-31) pg MCHC (31-36) g/dL RDW (10-15) % Plt Count (150-450) 10^3/uL MPV (7.4-10.4) fL Neut % (Auto) % Lymph % (Auto) % [place] % (Auto) % Eos % (Auto) % Baso % (Auto) % Absolute Neuts (auto) (1.5-7.7) 10^3/ul Absolute Lymphs (auto) (1.0-4.8) 10^3/ul Absolute Monos (auto) (0-0.8) 10^3/ul Absolute Eos (auto) (0-0.6) 10^3/ul Absolute Basos (auto) (0-0.2) 10^3/ul Absolute Nucleated RBC 10^3/ul Nucleated RBC % INR (Anticoag Therapy) (0.82-1.09) APTT (26.0-38.0) seconds Sodium (135-145) mmol/L Potassium (3.5-5.0) mmol/L Chloride (101-111) mmol/L Carbon Dioxide (22-32) mmol/L Anion Gap (2-11) mmol/L BUN (6-24) mg/dL Creatinine (0.51-0.95) mg/dL Est GFR ( Amer) (>60) Est GFR (Non-Af Amer) (>60) BUN/Creatinine Ratio (8-20) Glucose (70-100) mg/dL Calcium (8.6-10.3) mg/dL Total Bilirubin (0.2-1.0) mg/dL AST (13-39) U/L ALT (7-52) U/L Alkaline Phosphatase (34-104) U/L Troponin I (<0.04) ng/mL C-Reactive Protein (<8.01) mg/L B-Natriuretic Peptide 33 (<=100) pg/mL Total Protein (6.4-8.9) g/dL Albumin (3.2-5.2) g/dL Globulin (2-4) g/dL Albumin/Globulin Ratio (1-3) Microbiology and Other Data: Microbiology 08/08/18 12:50 Gram Stain - Final Sputum Diagnostic Imaging: Patient Name: SAM CORNEJO Medical Record#: [id number] Ordering Physician: Evelio Gray MD Acct.#: [id number] : 1940 Age: 78 Sex: F Location: [address] [place] [address] - MEDICAL Exam Date: 08/07/182336 ADM Status: ADM Diane Order Information: CHEST AP OR PORT Accession Number: [id number] CPT: 75273 Indication: Shortness of breath. Single frontal view of the chest performed at 0011 hours was reviewed. Comparison is made with previous exam dated August 03, 2016. Hyperinflated lung gongora are noted. No pleural fluid, pneumonia or pneumothorax is noted. IMPRESSION: NO ACTIVE CARDIOPULMONARY DISEASE IS NOTED. <Electronically signed by Alaina Hinojosa MD in [facility]> 08/08/18801 Dictated By: Alaina Hinojosa MD Dictated Date/Time: 08/08/18801 Transcribed Date/Time: 08/08/18 7218 Copy to: Assess/Plan/Problems-Billing Assessment: This is a 78 year ol female patient with history of COPD that presented to the ER with complaints of fever and SOB, admitted for exacerbation of COPD. - Patient Problems (1) COPD with exacerbation Code(s): J44.1 - CHRONIC OBSTRUCTIVE PULMONARY DISEASE W (ACUTE) EXACERBATION SNOMED Code(s): 537435076 Comment: - CXR as above, no obvious consolidation but considering subjective fever with leukocytosis, will continue ceftriaxone with azithromycin - Continue duonebs Q6h scheduled, inhalers, IV solumedrol Q12h - Mucinex BID - Flutter valve with nebs Q6h (2) Anxiety Code(s): F41.9 - ANXIETY DISORDER, UNSPECIFIED SNOMED Code(s): 40245581 Comment: - Xanax prn (3) GERD (gastroesophageal reflux disease) Code(s): K21.9 - GASTRO-ESOPHAGEAL REFLUX DISEASE WITHOUT ESOPHAGITIS SNOMED Code(s): 050661073 Comment: - PPI (4) Hypothyroidism Code(s): E03.9 - HYPOTHYROIDISM, UNSPECIFIED SNOMED Code(s): 26173991 Comment: - Continue levothyroxine (5) DVT prophylaxis Code(s): USH6204 - SNOMED Code(s): 877856606 Comment: - SQ heparin (6) Full code status Code(s): Z78.9 - OTHER SPECIFIED HEALTH STATUS SNOMED Code(s): 202061506 Status and Disposition: Inpatient for IV steroids and antibiotics, anticipated DC to home in 2-3 days if medically optimized.
[2018-08-09] MEDS: Zolpidem TAB* 5 MG PO PRN (22:44)
[2018-08-10] MEDS: Azithromycin 500 mg/250 ml NS 500 MG/250 ML BAG IVPB SCH (04:37)
[2018-08-10] MEDS: Levothyroxine TAB* 137 MCG TAB PO SCH (06:08)
[2018-08-10] MEDS: Heparin VIAL(*) 5000 UNITS/ML VIAL (FIVE THOUSAND) SUBCUT SCH ×3 (06:09→20:55)
[2018-08-10] MEDS: Albuterol 2.5 MG/3 ML NEB.SOL* (0.083%) INH PRN ×3 (07:25→21:05)
[2018-08-10] MEDS: Tiotropium CAP.INH* CAP.INH/18 MCG (USE ORDER SET !) INH SCH (07:25)
[2018-08-10] MEDS: Mometasone/Formoter 200/5 MDI INH SCH ×2 (07:25→23:15)
[2018-08-10] MEDS: Cholecalciferol TAB* 1000 UNITS PO SCH (09:09)
[2018-08-10] MEDS: Senna TAB PO SCH (09:09)
[2018-08-10] MEDS: Ascorbic Acid TAB* 500 MG PO SCH (09:09)
[2018-08-10] MEDS: cefTRIAXone(*) 1 GM in NS 0.9% 50 ML* 50 ML IVPB SCH (09:09)
[2018-08-10] MEDS: guaiFENesin ER TAB 600 MG PO SCH ×2 (09:09→20:55)
[2018-08-10] MEDS: Docusate CAP* 100 MG PO SCH (09:09)
[2018-08-10] MEDS: Aspirin EC TAB* 81 MG TAB.EC PO SCH (09:09)
[2018-08-10] MEDS: Pantoprazole TAB * 40 MG TAB PO SCH (09:09)
[2018-08-10] MEDS: methylPREDNISolone SOD 40 MG* 1 ML VIAL IV SCH ×2 (09:55→20:56)
[2018-08-10] MEDS: guaiFENesin/CODIEN 100MG-10MG* 5 ML UDC PO PRN ×2 (13:50→21:35)
--- NOTE | 2018-08-10 14:50 | PN ---
Subjective Date of Service: 08/10/18 Interval History: Patient seen and examined. States she didn't sleep well last night. Ambien was requested at 8:30 but was not given until 11:30 and she did not fall asleep until 1am. Persistent coughing thereafter also kept waking her. Otherwise she denies any fevers or chills. She is still SOB with exertion or ambulation. O2 has been turned down to 2L NC which is her baseline at home. Objective Active Medications: Acetaminophen (Tylenol Tab*) 650 mg PO Q4H PRN PRN Reason: FEVER/PAIN Last Admin: 08/08/18 12:25 Dose: 650 mg Al Hydrox/Mg Hydrox/Simethicone (Maalox Plus*) 30 ml PO Q6H PRN PRN Reason: INDIGESTION Albuterol (Ventolin Hfa Inhaler*) 2 puff INH Q4H PRN PRN Reason: SHORTNESS OF BREATH Albuterol (Ventolin 2.5 Mg/3 Ml Neb.Juanita*) 2.5 mg INH Q6H PRN PRN Reason: SOB/WHEEZING Last Admin: 08/10/18 13:56 Dose: 2.5 mg Alprazolam (Xanax Tab*) 0.25 mg PO TID PRN PRN Reason: ANXIETY Last Admin: 08/09/18 22:47 Dose: 0.25 mg Ascorbic Acid (Vitamin C Tab*) 500 mg PO DAILY [facility] Last Admin: 08/10/18 09:09 Dose: 500 mg Aspirin (Aspirin Ec Tab*) 81 mg PO DAILY [facility] Last Admin: 08/10/18 09:09 Dose: 81 mg Cholecalciferol (Vitamin D Tab*) 1,000 units PO DAILY [facility] Last Admin: 08/10/18 09:09 Dose: 1,000 units Docusate Sodium (Colace Cap*) 100 mg PO DAILY [facility] Last Admin: 08/10/18 09:09 Dose: 100 mg Guaifenesin (Mucinex*) 600 mg PO BID [facility] Last Admin: 08/10/18 09:09 Dose: 600 mg Guaifenesin/Codeine Phosphate (Robitussin Ac 100mg-10mg*) 5 ml PO Q6H PRN PRN Reason: COUGH Last Admin: 08/10/18 13:50 Dose: 5 ml Heparin Sodium (Porcine) (Heparin Vial(*)) 5,000 units SUBCUT 0600,1400,2200 [facility] Last Admin: 08/10/18 13:50 Dose: 5,000 units Azithromycin (Zithromax 500 Mg/250 Ml) 500 mg in 250 mls @ 250 mls/hr IVPB Q24H [facility] Last Admin: 08/10/18 04:37 Dose: 250 mls/hr Ceftriaxone Sodium 1 gm/ (Sodium Chloride) 50 mls @ 200 mls/hr IVPB Q24H [facility] Last Admin: 08/10/18 09:09 Dose: 200 mls/hr Levothyroxine Sodium (Synthroid Tab*) 137 mcg PO DAILY@0600 [facility] Last Admin: 08/10/18 06:08 Dose: 137 mcg Methylprednisolone Sodium Succinate (Solu-Medrol 40 Mg) 40 mg IV Q12H [facility] Last Admin: 08/10/18 09:55 Dose: 40 mg Mometasone Furoate/Formoterol Fumar (Dulera 200/5 Mdi*) 2 puff INH BID [facility] Last Admin: 08/10/18 07:25 Dose: 2 puff Pantoprazole Sodium (Protonix Tab*) 40 mg PO DAILY [facility] Last Admin: 08/10/18 09:09 Dose: 40 mg Senna (Senokot Tab*) 1 tab PO DAILY [facility] Last Admin: 08/10/18 09:09 Dose: 1 tab Tiotropium [place] (Spiriva Cap.Inh*) 1 cap INH DAILY [facility] Last Admin: 08/10/18 07:25 Dose: 1 cap Zolpidem Tartrate (Ambien Tab*) 5 mg PO 1999 [facility] Vital Signs - 8 hr 08/10/18 08/10/18 08/10/18 07:00 07:26 10:29 Temperature 98.3 F Pulse Rate 71 70 Respiratory 22 18 20 Rate Blood Pressure 142/55 (mmHg) O2 Sat by Pulse 98 98 Oximetry 08/10/18 08/10/18 11:00 13:56 Temperature 98.3 F Pulse Rate 67 72 Respiratory 22 18 Rate Blood Pressure 135/60 (mmHg) O2 Sat by Pulse 97 97 Oximetry Oxygen Devices in Use Now: Nasal Cannula Appearance: alert, NAD Eyes: No Scleral Icterus, PERRLA Ears/Nose/Mouth/Throat: NL Teeth, Lips, Gums, Mucous Membranes Moist Neck: NL Appearance and Movements; NL JVP, Trachea Midline Respiratory: Symmetrical Chest Expansion and Respiratory Effort, - - crackles LLL, exp wheeze RLL, improved air entry bilaterally Cardiovascular: NL Sounds; No Murmurs; No JVD, RRR, No Edema Skin: No Rash or Ulcers Neurological: Alert and Oriented x 3, NL Gait Nutrition: Taking PO's Result Diagrams: 08/09/18 06:15 08/09/18 06:15 Additional Lab and Data: Lab Results 08/08/18 08/08/18 08/08/18 Range/Units 00:09 00:09 00:09 WBC 20.0 H (3.5-10.8) 10^3/uL RBC 4.36 (3.70-4.87) 10^6 /uL Hgb 12.5 (12.0-16.0) g/dL Hct 38 (35-47) % MCV 88 (80-97) fL MCH 29 (27-31) pg MCHC 33 (31-36) g/dL RDW 14 (10-15) % Plt Count 287 (150-450) 10^3/uL MPV 8.4 (7.4-10.4) fL Neut % (Auto) 96.3 % Lymph % (Auto) 2.0 % [place] % (Auto) 1.5 % Eos % (Auto) 0.0 % Baso % (Auto) 0.2 % Absolute Neuts (auto) 19.2 H (1.5-7.7) 10^3/ul Absolute Lymphs (auto) 0.4 L (1.0-4.8) 10^3/ul Absolute Monos (auto) 0.3 (0-0.8) 10^3/ul Absolute Eos (auto) 0.0 (0-0.6) 10^3/ul Absolute Basos (auto) 0.0 (0-0.2) 10^3/ul Absolute Nucleated RBC 0.0 10^3/ul Nucleated RBC % 0.0 INR (Anticoag Therapy) 0.97 (0.82-1.09) APTT 31.3 (26.0-38.0) seconds Sodium 135 (135-145) mmol/L Potassium 3.7 (3.5-5.0) mmol/L Chloride 102 (101-111) mmol/L Carbon Dioxide 26 (22-32) mmol/L Anion Gap 7 (2-11) mmol/L BUN 12 (6-24) mg/dL Creatinine 0.71 (0.51-0.95) mg/dL Est GFR ( Amer) 96.8 (>60) Est GFR (Non-Af Amer) 80.0 (>60) BUN/Creatinine Ratio 16.9 (8-20) Glucose 244 H (70-100) mg/dL Calcium 9.3 (8.6-10.3) mg/dL Total Bilirubin 0.40 (0.2-1.0) mg/dL AST 16 (13-39) U/L ALT 15 (7-52) U/L Alkaline Phosphatase 83 (34-104) U/L Troponin I 0.00 (<0.04) ng/mL C-Reactive Protein 50.89 H (<8.01) mg/L B-Natriuretic Peptide (<=100) pg/mL Total Protein 7.1 (6.4-8.9) g/dL Albumin 4.3 (3.2-5.2) g/dL Globulin 2.8 (2-4) g/dL Albumin/Globulin Ratio 1.5 (1-3) 08/08/18 Range/Units 00:09 WBC (3.5-10.8) 10^3/uL RBC (3.70-4.87) 10^6 /uL Hgb (12.0-16.0) g/dL Hct (35-47) % MCV (80-97) fL MCH (27-31) pg MCHC (31-36) g/dL RDW (10-15) % Plt Count (150-450) 10^3/uL MPV (7.4-10.4) fL Neut % (Auto) % Lymph % (Auto) % [place] % (Auto) % Eos % (Auto) % Baso % (Auto) % Absolute Neuts (auto) (1.5-7.7) 10^3/ul Absolute Lymphs (auto) (1.0-4.8) 10^3/ul Absolute Monos (auto) (0-0.8) 10^3/ul Absolute Eos (auto) (0-0.6) 10^3/ul Absolute Basos (auto) (0-0.2) 10^3/ul Absolute Nucleated RBC 10^3/ul Nucleated RBC % INR (Anticoag Therapy) (0.82-1.09) APTT (26.0-38.0) seconds Sodium (135-145) mmol/L Potassium (3.5-5.0) mmol/L Chloride (101-111) mmol/L Carbon Dioxide (22-32) mmol/L Anion Gap (2-11) mmol/L BUN (6-24) mg/dL Creatinine (0.51-0.95) mg/dL Est GFR ( Amer) (>60) Est GFR (Non-Af Amer) (>60) BUN/Creatinine Ratio (8-20) Glucose (70-100) mg/dL Calcium (8.6-10.3) mg/dL Total Bilirubin (0.2-1.0) mg/dL AST (13-39) U/L ALT (7-52) U/L Alkaline Phosphatase (34-104) U/L Troponin I (<0.04) ng/mL C-Reactive Protein (<8.01) mg/L B-Natriuretic Peptide 33 (<=100) pg/mL Total Protein (6.4-8.9) g/dL Albumin (3.2-5.2) g/dL Globulin (2-4) g/dL Albumin/Globulin Ratio (1-3) Microbiology and Other Data: Microbiology 08/08/18 12:50 Gram Stain - Final Sputum Diagnostic Imaging: Patient Name: SAM CORNEJO Medical Record#: [id number] Ordering Physician: Evelio Gray MD Acct.#: [id number] : 1940 Age: 78 Sex: F Location: [address] [place] [address] - MEDICAL Exam Date: 08/07/182336 ADM Status: ADM Diane Order Information: CHEST AP OR PORT Accession Number: [id number] CPT: 32476 Indication: Shortness of breath. Single frontal view of the chest performed at 0011 hours was reviewed. Comparison is made with previous exam dated August 03, 2016. Hyperinflated lung gongora are noted. No pleural fluid, pneumonia or pneumothorax is noted. IMPRESSION: NO ACTIVE CARDIOPULMONARY DISEASE IS NOTED. <Electronically signed by Alaina Hinojosa MD in [facility]> 08/08/18801 Dictated By: Alaina Hinojosa MD Dictated Date/Time: 08/08/18801 Transcribed Date/Time: 08/08/18 598 Copy to: Assess/Plan/Problems-Billing Assessment: This is a 78 year ol female patient with history of COPD that presented to the ER with complaints of fever and SOB, admitted for exacerbation of COPD. - Patient Problems (1) COPD with exacerbation Code(s): J44.1 - CHRONIC OBSTRUCTIVE PULMONARY DISEASE W (ACUTE) EXACERBATION SNOMED Code(s): 497906947 Comment: - CXR as above, no obvious consolidation but considering subjective fever with leukocytosis, continue ceftriaxone with azithromycin - Continue duonebs Q6h scheduled, inhalers, IV solumedrol Q12h - Flutter valve with nebs Q6h - Will change from mucinex to guaifenesen with codeine to assist with nighttime cough and congestion - O2 down to 2LNC (patient's home dose) and maintaining adequate sats (2) Insomnia Code(s): G47.00 - INSOMNIA, UNSPECIFIED SNOMED Code(s): 385273697 Comment: - Will schedule ambien for 8pm as opposed to bedtime for earlier administration to assist with sleep (3) Anxiety Code(s): F41.9 - ANXIETY DISORDER, UNSPECIFIED SNOMED Code(s): 38589736 Comment: - Xanax prn (4) GERD (gastroesophageal reflux disease) Code(s): K21.9 - GASTRO-ESOPHAGEAL REFLUX DISEASE WITHOUT ESOPHAGITIS SNOMED Code(s): 884404320 Comment: - PPI (5) Hypothyroidism Code(s): E03.9 - HYPOTHYROIDISM, UNSPECIFIED SNOMED Code(s): 80587832 Comment: - Continue levothyroxine (6) DVT prophylaxis Code(s): KIY6569 - SNOMED Code(s): 733235263 Comment: - SQ heparin (7) Full code status Code(s): Z78.9 - OTHER SPECIFIED HEALTH STATUS SNOMED Code(s): 023391179 Status and Disposition: Inpatient for IV steroids and antibiotics. Improvement noted, likely DC home tomorrow if wheeze and SOB improved.
[2018-08-10] MEDS ORDERED: Zolpidem TAB* 5 MG PO SCH (20:00)
[2018-08-11] MEDS: Azithromycin 500 mg/250 ml NS 500 MG/250 ML BAG IVPB SCH (03:58)
[2018-08-11] MEDS: guaiFENesin/CODIEN 100MG-10MG* 5 ML UDC PO PRN (03:58)
[2018-08-11] MEDS: Levothyroxine TAB* 137 MCG TAB PO SCH (05:32)
[2018-08-11] MEDS: Heparin VIAL(*) 5000 UNITS/ML VIAL (FIVE THOUSAND) SUBCUT SCH (05:33)
[2018-08-11] MEDS: ALPRAZolam TAB* 0.25 MG PO PRN (05:39)
[2018-08-11 06:03] LABS: ABS Lymphocytes 0.9 10^3/ul (1.0-4.8); ABS Monocytes 0.6 10^3/ul (0-0.8); Eosinophil % 0.1 %; Hematocrit 32 % (35-47); Hemoglobin 10.8 g/dL (12.0-16.0); Mean Corpuscular HGB Conc 34 g/dL (31-36); Mean Corpuscular Hemoglobin 30 pg (27-31); Mean Corpuscular Volume 88 fL (80-97); Mean Platelet Volume 8.7 fL (7.4-10.4); Nucleated Red Blood Cells % 0.1; Platelet Count 255 10^3/uL (150-450); Red Cell Distribution Width 14 % (10-15); White Blood Count 9.5 10^3/uL (3.5-10.8)
[2018-08-11 06:23] LABS: Calcium 8.9 mg/dL (8.6-10.3); EGFR African American 117.6 (>60); EGFR Non-African American 97.2 (>60); Potassium 4.2 mmol/L (3.5-5.0)
[2018-08-11] MEDS: Albuterol 2.5 MG/3 ML NEB.SOL* (0.083%) INH PRN (07:47)
[2018-08-11] MEDS: Tiotropium CAP.INH* CAP.INH/18 MCG (USE ORDER SET !) INH SCH (07:49)
[2018-08-11] MEDS: Mometasone/Formoter 200/5 MDI INH SCH (07:49)
[2018-08-11 09:09] VITALS: BP 146/65
[2018-08-11] MEDS: methylPREDNISolone SOD 40 MG* 1 ML VIAL IV SCH (09:22)
[2018-08-11] MEDS: cefTRIAXone(*) 1 GM in NS 0.9% 50 ML* 50 ML IVPB SCH (09:22)
[2018-08-11] MEDS: Docusate CAP* 100 MG PO SCH (09:23)
[2018-08-11] MEDS: guaiFENesin ER TAB 600 MG PO SCH (09:23)
[2018-08-11] MEDS: Aspirin EC TAB* 81 MG TAB.EC PO SCH (09:23)
[2018-08-11] MEDS: Senna TAB PO SCH (09:23)
[2018-08-11] MEDS: Cholecalciferol TAB* 1000 UNITS PO SCH (09:23)
[2018-08-11] MEDS: Ascorbic Acid TAB* 500 MG PO SCH (09:23)
[2018-08-11] MEDS: Pantoprazole TAB * 40 MG TAB PO SCH (09:23)
--- NOTE | 2018-08-11 11:37 | DS ---
CC: Cortes Stokes NP * DISCHARGE SUMMARY: DATE OF ADMISSION: 08/08/18 DATE OF DISCHARGE: 08/11/18 PRIMARY CARE PROVIDER: Cortes Stokes NP. ATTENDING PHYSICIAN: Dr. Osullivan * (dictated by Patricia Ansari NP). PRIMARY DIAGNOSES: 1. Chronic obstructive pulmonary disease exacerbation. 2. Insomnia. 3. Anxiety. 4. Gastroesophageal reflux disease. 5. Hypothyroid. SECONDARY DIAGNOSES: 1. Hypertension. 2. Lung nodule. STUDIES WHILE IN THE HOSPITAL: EKG: Impression: Sinus tachycardia. Chest x-ray: Impression: No active cardiopulmonary disease is noted. DISCHARGE HOME MEDICATIONS: Continued Home Medications: 1. Ibuprofen 600 mg p.o. q.8 hours p.r.n. 2. Aspirin 81 mg p.o. daily. 3. Sennoside/docusate sodium 1 tab p.o. daily. 4. Vitamin D3 at 1000 units p.o. daily. 5. Vitamin C 500 mg p.o. daily. 6. Multivitamin 1 tab p.o. daily. 7. Ventolin 2 puffs inhalation q.4 hours p.r.n. 8. Albuterol 2.5 mg inhalation q.6 hours p.r.n. 9. Levothyroxine 137 mcg p.o. daily. 10. Alprazolam 0.25 mg p.o. b.i.d. 11. Spiriva 1 cap inhalation daily. 12. Advair 1 inhalation b.i.d. Discontinued Home Medications: No home medication was discontinued. [place] Medications: Cefdinir 300 mg p.o. b.i.d. x4 days, starting 08/11/18. HISTORY OF PRESENT ILLNESS AND HOSPITAL COURSE: Mrs. Palmer is a 78-year-old female with a past medical history significant for COPD; oxygen-dependent, hypertension, hypothyroid, GERD, anxiety, and lung nodule who presented to the emergency department on 08/08/18 with complaints of shortness of breath. Please see history and physical dictated by Dr. Lani Butler for complete summary of events leading up to this hospitalization, but in short, the patient presented to the emergency room with the above-mentioned symptoms and was found to be in a COPD exacerbation; therefore, was placed on the medical floor for further evaluation and treatment. During this hospitalization, the patient has received IV steroids, ceftriaxone, azithromycin. The patient initially had significant shortness of breath and cough. Over the course of her hospital stay, she has greatly improved. The patient is at her baseline supplemental oxygen of 2 L nasal cannula. She reports that her shortness of breath is near her baseline. The patient's hospitalization was slightly complicated as she did have some insomnia that required Ambien. The patient is stable for discharge home today. Vital Signs: Temp 98.3, HR 71, RR 22, O2 saturation 98% on 2 L, BP 142/55. REVIEW OF SYSTEMS: The patient reports mild shortness of breath with exertion, specifically climbing back into bed. She reports that she can walk the unit without difficulty and without shortness of breath. The patient reports that this level of shortness of breath is close to her baseline. The patient denies chest pain, palpitations, nausea, vomiting, diarrhea, weakness, headache, fever , chills. A 14-point review of systems was completed and all others are negative. PHYSICAL EXAMINATION: General: Mrs. Palmer is a 78-year-old female who is sitting in bed, appears to be in no acute distress. Appears stated age. HEENT: EOMs intact. PERRLA. Oral mucosa is moist without lesion. Posterior pharynx is clear. Neck: Supple. No lymphadenopathy. Cardiac: S1, S2 present. No murmurs, rubs, or gallops. Regular rate and rhythm. Respiratory: The patient has sporadic expiratory wheeze. She has no rhonchi, rales, or crackles. The patient has only slightly decreased aeration. Abdomen: Soft, nontender. Bowel sounds normoactive. Extremities: No clubbing or cyanosis. No edema. Pedal pulses 2+ bilaterally. Musculoskeletal: No pain or deformities. Skin: Skin is grossly intact. Neuro: Neuro exam is grossly intact. No focal deficits or weakness. LABORATORY DATA: WBC 9.4, hemoglobin 10.8, hematocrit 32, platelets 255. Sodium 140, potassium 4.2, chloride 105, carbon dioxide 30, BUN 15, creatinine 0.60, glucose 139. DISCHARGE PLAN/FOLLOWUP: 1. COPD exacerbation: On admission, the patient had symptoms of wheezing and dyspnea, both of which have improved mainly. The patient received azithromycin 500 mg IV daily x3 days to equal 1500 mg; therefore, we will not continue azithromycin. The patient received ceftriaxone x3 days. The patient is to continue Cefdinir at discharge for 4 more days to equal 7 days of treatment. The patient received IV steroids in the form of Solu-Medrol 40 mg IV q.12 hours. The patient will be transitioned to prednisone 50 mg p.o. daily x5 days. The patient will be encouraged to follow up with the primary care next week to assess whether or not she needs continued steroids or to have longer taper. The patient is currently on her home dose oxygen supplementation at 2 L nasal cannula. She will continue this at home. 2. Insomnia: The patient was given Ambien while in the hospital that had slightly helped. I will not continue this at discharge as I suspect her insomnia was secondary to being in the hospital. If the patient needs further assistance for insomnia, I recommend she follows up with the primary care provider. 3. Leukocytosis: On admission, the patient's white blood cell count was 20.0. The patient's white blood cell currently is 9.4. 4. Anxiety: The patient should continue her Xanax p.r.n. 5. GERD: The patient should continue her PPI. 6. Hypothyroid: The patient should continue her levothyroxine. 7. Hypertension: The patient is currently not on any blood pressure medications. She has been normotensive while she was here in the hospital. I have encouraged her to follow up with her primary care for further evaluation and treatment if needed. 8. History of 0.6 cm lung nodule that is followed by Dr. Bunch: The patient reports she has a followup with Dr. Bunch on 09/12/18. I have encouraged her to keep this appointment. If her primary care believes that she needs to be seen sooner given her COPD exacerbation, I would recommend she call Dr. Bunch' s office to make her appointment sooner. 9. Followup: The patient should follow up with her primary care provider, Cortes Stokes NP, at the beginning of next week. The patient should keep her followup with Dr. Bunch on 09/12/18. 10. Education: The patient was educated on signs and symptoms of new or worsening condition and when to return to the emergency department. The patient stated understanding. This is a summarized report of a complex medical history and hospital stay. For further details, please see the entire medical record. TIME SPENT: Approximately 35 minutes were spent on this discharge, greater than half that time was spent [id number] with the patient discussing discharge plans and instructions. This plan was discussed with my attending, Dr. Osullivan, who is in agreement with my plan of care. Reviewed by PATRICIA ANSARI NP 08/13/18 @ [id number] [id number]/CPS #: [id number] MTDD
== END 2018-08-11 11:10 | disposition home or self-care (01) | DRG 192 ==
LOC: ED 23:08 → MED 08-08 02:09 → OBSVTOIN 08-09 14:40
PROVIDERS: ADMIT Internal Medicine; ATTEND Internal Medicine
DX: J44.1 Chronic obstructive pulmonary disease with (acute) exacerbation (principal); F41.9 Anxiety disorder, unspecified; G47.00 Insomnia, unspecified; K21.9 Gastro-esophageal reflux disease without esophagitis; E03.9 Hypothyroidism, unspecified; M19.90 Unspecified osteoarthritis, unspecified site; M51.26 Other intervertebral disc displacement, lumbar region; M50.20 Other cervical disc displacement, unspecified cervical region; H26.9 Unspecified cataract; I10 Essential (primary) hypertension; R91.1 Solitary pulmonary nodule; D72.829 Elevated white blood cell count, unspecified; Z88.7 Allergy status to serum and vaccine; Z88.6 Allergy status to analgesic agent; Z88.1 Allergy status to other antibiotic agents; Z91.041 Radiographic dye allergy status; Z79.82 Long term (current) use of aspirin; Z99.81 Dependence on supplemental oxygen; Z80.1 Family history of malignant neoplasm of trachea, bronchus and lung; Z81.1 Family history of alcohol abuse and dependence; Z87.891 Personal history of nicotine dependence; Z80.3 Family history of malignant neoplasm of breast; Z72.89 Other problems related to lifestyle
CPT/HCPCS: 36415; 71045; 80048; 80053; 83880; 84484; 85025; 85610; 85730; 86140; 87040; 87070; 87205; 93005; 94640; 99285; A9270-GY; G0378; J0456; J0696; J1644; J1650; J2920; J2930; J3475

== ENCOUNTER 2018-12-12 12:45 | Emergency (ER) | payer MEDICARE, BC ==
--- NOTE | 2018-12-12 13:07 | ED ---
Shortness of Breath - HPI Summary HPI Summary: This patient is a 78 year old female with a Hx of COPD presenting to [facility] with a chief complaint of chest pain/SOB. She was seeing her primary care provider who told her to come here. She reports chest pressure which she says it is causing her SOB. She is on home O2 at 3 liters. She sees a Director Weights And Measures in relation to her COPD but states she does not have a cardiac Hx. She states she has not been able to do the activities around the house she normally does due to SOB exertion. She has been able to cook and do laundry but can no longer do activities like vacuum. She denies lower extremity edema. - History of Current Complaint Chief Complaint: EDShortnessOfBreath Time Seen by Provider: 12/12/18 13:00 Hx Obtained From: Patient Onset/Duration: Lasting Weeks Dyspnea At: Exertion - Allergy/Home Medications Allergies/Adverse Reactions: Allergies Allergy/AdvReac Type Severity Reaction Status Date / Time tetanus toxoid, adsorbed Allergy Swelling Verified 08/08/18 00:21 diazepam AdvReac Intermediate Agitation Verified 08/08/18 00:21 tetracycline AdvReac Intermediate Blurred Verified 08/08/18 00:21 Vision iv contrast Allergy Severe See Comment Uncoded 11/03/16 08:40 Home Medications: Home Medications Albuterol 2.5MG/3ML (0.083%)* [Ventolin 2.5 MG/3 ML NEB.CHAD*] 2.5 mg INH .BID TO QID PRN 12/12/18 [History Confirmed 12/12/18] Cheratussin 100-10 Mg 5 - 10 ml PO Q4HR PRN 12/12/18 [History Confirmed 12/12/18 ] guaiFENesin [Mucinex] 1,200 mg PO DAILY 12/12/18 [History Confirmed 12/12/18] PMH/Surg Hx/FS Hx/Imm Hx Endocrine/Hematology History: Reports: Hx Thyroid Disease - HYPOTHYROID Respiratory History: Reports: Hx Chronic Obstructive Pulmonary Disease (COPD), Other Respiratory Problems/Disorders - O2 2 LITERS NASAL CANNULA Denies: Hx Asthma GI History: Reports: Hx Gastroesophageal Reflux Disease - ON PRILOSEC FOR, Other GI Disorders - 3 MONTHS AGO- DX WITH DIVERTICULITIS Musculoskeletal History: Reports: Hx Arthritis, Other Musculoskeletal History - Hernited disc L3-L5 & cervical spine Sensory History: Reports: Hx Cataracts - BILATERAL Denies: Hx Contacts or Glasses, Hx Hearing Aid Opthamlomology History: Reports: Hx Cataracts - BILATERAL Denies: Hx Contacts or Glasses Psychiatric History: Reports: Hx Anxiety - ON MEDICATION FOR - Cancer History Hx Chemotherapy: No Hx Radiation Therapy: No - Surgical History Surgery Procedure, Year, and Place: tumor removed from Left breast-benign 1974. D&C at age 20, 196 Hx Anesthesia Reactions: No Infectious Disease History: No Infectious Disease History: Denies: Traveled Outside the [place] in Last 30 Days - Family History Known Family History: Positive: Other - Yes- Breast CA - Social History Alcohol Use: Weekly Alcohol Amount: 1 glass wine Substance Use Type: Reports: None Smoking Status (MU): Former Smoker Type: Cigarettes Amount Used/How Often: 1 PPD X 50 YEARS Have You Smoked in the Last Year: No Review of Systems Negative: Fever Positive: Chest Pain Positive: Shortness Of Breath Negative: Edema All Other Systems Reviewed And Are Negative: Yes Physical Exam - Summary Physical Exam Summary: Appearance: Somewhat dyspnic appearing women lying in bed in otherwise no acute distress. Skin: Warm, dry, no obvious rash Eyes: sclera anicteric, no conjunctival pallor ENT: mucous membranes moist, pharynx appears normal Neck: Supple, nontender Respiratory: Clear to auscultation, no signs of respiratory distress Cardiovascular: Normal S1, S2. No murmurs. Mild tachycardia. Abdomen: Soft, nontender, normal active bowel sounds present Musculoskeletal: Normal, Strength/ROM Intact Neurological: A&Ox3, awake and alert, mentation is normal, speech is fluent and appropriate Psychiatric: affect is normal, does not appear anxious or depressed Triage Information Reviewed: Yes Vital Signs On Initial Exam: Initial Vitals Temp Pulse Resp BP Pulse Ox 98.1 F 109 22 155/85 91 12/12/18 12:50 12/12/18 12:50 12/12/18 12:50 12/12/18 12:50 12/12/18 12:50 Vital Signs Reviewed: Yes Procedures - Sedation Patient Received Moderate/Deep Sedation with Procedure: No Diagnostics - Vital Signs Vital Signs Temp Pulse Resp BP Pulse Ox 12/12/18 12:50 98.1 F 109 22 155/85 91 - Laboratory Result Diagrams: 12/12/18 14:04 12/12/18 14:04 Lab Statement: Any lab studies that have been ordered have been reviewed, and results considered in the medical decision making process. - Radiology CXR Radiology Interpretation Completed By: Radiologist Summary of Radiographic Findings: Hyperinflation consistent with COPD. No active cardiopulmonary disease. ED Provider has reviewed this report. - EKG 1255 Cardiac Rate: Tachycardia - 104 BPM EKG Rhythm: Sinus Tachycardia Summary of EKG Findings: No STEMI. ED Physician has read and intepreted this EKG. Course/Dx - Course Course Of Treatment: This patient is a 78 year old female with a Hx of COPD presenting to [facility] with a chief complaint of chest pain/SOB. Physical exam was unremarkable except for mild tachycardia. Labs were unremarkable except Hgb 13.5 L, Hct 40 L, MCH 32 H, BUN/Creatinine ratio 20.3 H, Glucose 103 H. CXR was unremarkable for acute problems. A plan for discharge was discussed with the patient and she was agreeable with this plan. - Diagnoses Provider Diagnoses: COPD exacerbation - Physician Notifications Discussed Care of Patient With: Boby Del Toro Instructed by Provider To: Have Pt Call For Appt. Discharge ED - Sign-Out/Discharge Documenting (check all that apply): Patient Departure - Discharge - Discharge Plan Condition: Good Disposition: HOME Prescriptions: predniSONE TAB* [Deltasone 20 MG TAB*] 40 mg PO DAILY 7 Days #14 tab Patient Education Materials: COPD (Chronic Obstructive Pulmonary Disease) (ED) Referrals: Cortes Conde, TUMBLER PLATER [Primary Care Provider] - Additional Instructions: I spoke with Dr. Del Toro about your evaluation today, and we think continuing you on the prednisone would be the best way to handle this for now. The tests ruled out anything dangerous, such as pneumonia, an acute heart problem, or a blood clot in the lungs. - Billing Disposition and Condition Condition: GOOD Disposition: Home - Attestation Statements Document Initiated by Scribe: Yes Documenting Scribe: Nikolai Sanchez Provider For Whom Son is Documenting (Include Credential): Vineet Bernabe MD Scribe Attestation: Nikolai Pineda, scribed for Vineet Bernabe MD on 12/13/18 at 0757. Scribe Documentation Reviewed: Yes Provider Attestation: The documentation as recorded by the Nikolai andrews accurately reflects the service I personally performed and the decisions made by me, Vineet Bernabe MD Status of Scribe Document: Viewed
--- OUTSIDE RECORDS SUMMARY | 2018-12-12 13:09 | XMS REPORT | Continuity of Care Document ---
:1940 External Reference #:[id number] Author Name Kenton Arndt Care Team Providers Name Role Phone Cortes Conde NP - Family Care Team Information Substitute Crossing Guard [phone] Problems Active Problems Provider Date Pulmonary emphysema Daniel Bella M.D. Onset: 12/24/2010 Electrocardiogram abnormal Daniel Bella M.D. Onset: 12/24/2010 Chest pain Daniel Bella M.D. Onset: 12/24/2010 Dyspnea Daniel Bella M.D. Onset: 12/24/2010 [place] [facility] Schedule Onset: 11/13/2011 Palpitations Daniel Bella M.D. Onset: 12/19/2012 Emphysema, unspecified Daniel Bella M.D. Onset: 11/06/2014 Chronic obstructive lung disease Crystal Bunch MD Onset: 01/03/2016 Hypoxemia Crystal Bunch MD Onset: 01/03/2016 Disorder of lung Crystal Bunch MD Onset: 01/03/2016 Chronic respiratory failure Crystal Bunch MD Onset: 07/02/2016 Social History Type Date Description Comments Sex Unknown Tobacco Use Start: Unknown Former Cigarette Smoker End: Unknown ETOH Use Currently consumes Glass on wine on alcohol weekends Tobacco Use Start: Unknown Stopped smoking in Quit April 2010April Recreational Drug Use Denies Drug Use Tobacco Use Start: Unknown Patient is a former 1PPD or less /day x End: Unknown smoker 50 years Smoking Status Reviewed: 09/12/18 Patient is a former 1PPD or less /day x smoker 50 years Exercise Type/Frequency Exercises sporadically Exercise Type/Frequency Walk Patient walks sporadicallyDocument: 11/05/16 - Pulmonology Follow Up Allergies, Adverse Reactions, Alerts Active Allergies Reaction Severity Comments Date Valium 12/24/2010 contrast dye 12/24/2010 Tetracycline 01/03/2016 Tetanus 01/03/2016 Medications Active Medications SIG Qnty Indications Ordering Date Provider Multivital [place] daily Unknown 01/02/2016 Tablets Oxygen 2 lpm via n/c Unknown 01/02/2016 Misc Proair HFA 2 puffs by mouth 90units Crystal Alivia, 01/02/2016 108(90Base) every 4 hours as MD mcg/Act Aerosol needed Levothyroxine Sodium 1 po qd 90tabs Unknown 137mcg Tablets Vitamin D 1 po daily 30tabs Unknown 500Unit Tablets Vitamin C 1 po qd 30units Unknown 500mg Chewtabs Alprazolam 1/2 po bid 20tabs Unknown 0.5mg Tablets Senna 1-2 po qhs 60caps Unknown Capsules Advair Diskus 1 puff by mouth 90units Crystal Alivia, twice a day 250-50mcg/Dose Aerosol Albuterol Sulfate every 4-6 hours as Unknown needed 0.63mg/3ML Nebulizer Aspir-81 1 by mouth every Unknown 81mg Tablets day DR Ibuprofen three times a day Unknown 600mg Tablets prn Spiriva Handihaler inhale the 90caps Crystal Alivia, contents of one 18mcg Capsules capsule via handihaler by mouth daily Meclizine HCL Take One Tablet By Unknown 25mg Mouth Three Times Tablets A Day For Sensation Of Motion Immunizations Description No Information Available Vital Signs Date Vital Result Comment 09/12/2018 1:20pm Height 65 inches 5'5" Weight 174.00 lb Heart Rate 70 /min BP Systolic Sitting 124 mmHg Lue regular cuff BP Diastolic Sitting 80 mmHg Lue regular cuff Respiratory Rate 12 /min O2 % BldC Oximetry 97 % 3 pulse BMI (Body Mass Index) 29.0 kg/m2 03/15/2018 1:38pm Height 65 inches 5'5" Weight 172.50 lb Heart Rate 76 /min BP Systolic Sitting 154 mmHg Lue reg cuff BP Diastolic Sitting 86 mmHg Lue reg cuff Respiratory Rate 22 /min O2 % BldC Oximetry 97 % On O2 at 2 via nasal cannula, Poc BMI (Body Mass Index) 28.7 kg/m2 Results Description No Information Available Procedures Description No Information Available Medical Devices Description No Information Available Encounters Type Date Location Provider Dx Diagnosis Office Visit 09/12/2018 [facility] Leach44.9 Chronic obstructive 1:30p [facility] Carlos aguilar unspecified J98.4 Other disorders of lung R09.02 Hypoxemia Office Visit 08/11/2018 [facility] J44.1 Chronic 10:29a Assoc,alec Forrest NP obstructive Hospitalists pulmonary disease w (acute) exacerbation G47.00 Insomnia, unspecified F41.9 Anxiety disorder, unspecified K21.9 Gastro-esophageal reflux disease without esophagitis E03.9 Hypothyroidism, unspecified I10 Essential (primary) hypertension R91.1 Solitary pulmonary nodule Office Visit 08/10/2018 [facility] J44.1 Chronic 10:28a Assoc,alec ParkerKay Beti, obstructive Hospitalists [employer] HANDLING SUPERVISOR pulmonary disease w (acute) exacerbation G47.00 Insomnia, unspecified F41.9 Anxiety disorder, unspecified K21.9 Gastro-esophageal reflux disease without esophagitis E03.9 Hypothyroidism, unspecified Office Visit 08/09/2018 [facility] J44.1 Chronic 10:28a Assoc,alec Bang obstructive Hospitalists GENER[employer] HANDLING SUPERVISOR pulmonary disease w (acute) exacerbation F41.9 Anxiety disorder, unspecified K21.9 Gastro-esophageal reflux disease without esophagitis E03.9 Hypothyroidism, unspecified Office Visit 08/08/2018 [facility] Lani Butler J44.1 Chronic 10:27a Assalec tucker M.D. obstructive Hospitalists pulmonary disease w (acute) exacerbation E03.9 Hypothyroidism, unspecified Z86.59 Personal history of other mental and behavioral disorders Assessments Date Code Description Provider 09/12/2018 J44.9 Chronic obstructive pulmonary disease, Crystal Bunch MD unspecified 09/12/2018 J98.4 Other disorders of lung Crystal Bunch MD 09/12/2018 R09.02 Hypoxemia Crystal Bunch MD 08/11/2018 J44.1 Chronic obstructive pulmonary disease w Patricia Shortle, GENERAL HANDLING SUPERVISOR (acute) exacerbation 08/11/2018 G47.00 Insomnia, unspecified Patricia Shortle, GENERAL HANDLING SUPERVISOR 08/11/2018 F41.9 Anxiety disorder, unspecified Patricia Shortle, GENERAL HANDLING SUPERVISOR 08/11/2018 K21.9 Gastro-esophageal reflux disease without Patricia Shortle, GENER[employer]LING SUPERVISOR esophagitis 08/11/2018 E03.9 Hypothyroidism, unspecified Patricia Shortle, GENERAL HANDLING SUPERVISOR 08/11/2018 I10 Essential (primary) hypertension Patricia Shortle, GENERAL HANDLING SUPERVISOR 08/11/2018 R91.1 Solitary pulmonary nodule Patricia Shortle, GENERAL HANDLING SUPERVISOR 08/10/2018 J44.1 Chronic obstructive pulmonary disease w Iris Kay Doto, GENERAL HANDLING SUPERVISOR (acute) exacerbation 08/10/2018 G47.00 Insomnia, unspecified Iris Kay Doto, GENERAL HANDLING SUPERVISOR 08/10/2018 F41.9 Anxiety disorder, unspecified Iris Kay Doto, GENERAL HANDLING SUPERVISOR 08/10/2018 K21.9 Gastro-esophageal reflux disease without Iris Kay Doto, GENERAL HANDLING SUPERVISOR esophagitis 08/10/2018 E03.9 Hypothyroidism, unspecified Iris Kay Doto, GENERAL HANDLING SUPERVISOR 08/09/2018 J44.1 Chronic obstructive pulmonary disease w Iris Kay Doto, GENERAL HANDLING SUPERVISOR (acute) exacerbation 08/09/2018 F41.9 Anxiety disorder, unspecified Iris Kay Doto, GENERAL HANDLING SUPERVISOR 08/09/2018 K21.9 Gastro-esophageal reflux disease without Iris Kay Doto, GENERAL HANDLING SUPERVISOR esophagitis 08/09/2018 E03.9 Hypothyroidism, unspecified Iris Kay Doto, GENERAL HANDLING SUPERVISOR 08/08/2018 J44.1 Chronic obstructive pulmonary disease w Lani Butler M.D. (acute) exacerbation 08/08/2018 E03.9 Hypothyroidism, unspecified Lani Butler M.D. 08/08/2018 Z86.59 Personal history of other mental and Lani Butler M.D. behavioral disorders Plan of Treatment Future Appointment(s):09/18/2019 1:45 pm - Crystal Bunch MD at [facility]09/12/2018 - Crystal Bunch MD44.9 Chronic obstructive pulmonary disease, unspecifiedReferral:No Doctor SelectedFollow up: 1 yearJ98.4 Other disorders of lungR09.02 Hypoxemia Functional Status Description No Information Available Mental Status Description No Information Available Referrals Refer to Reason for Referral Status Appt Date Created
--- OUTSIDE RECORDS SUMMARY | 2018-12-12 13:09 | XMS REPORT | Continuity of Care Document ---
:1940 External Reference #:[id number] Author Name Daniel Bella M.D. (transmitted by agent of provider Ara Muhammad) Address [address] [facility] [address] [place] [address] Care Team Providers Name Role Phone Tucker Condewoodrowstevenson YOU[employer] DEVELOPMENT PROFESSIONAL - Family Care Team Information Biztalk Administrator [phone] Problems Active Problems Provider Date Pulmonary emphysema [...] Unknown Tobacco Use Start: Unknown Former Cigarette End: Unknown Smoker ETOH Use Currently consumes Glass on wine on alcohol weekends Tobacco Use Start: Unknown Stopped smoking in Quit April 2010April Recreational Drug Use Denies Drug Use Tobacco Use Start: Unknown Patient is a former 1PPD or less /day x 50 End: Unknown smoker years Smoking Status Reviewed: 12/05/18 Patient is a former 1PPD or less /day x 50 smoker years Exercise Type/Frequency Walk Patient walks sporadicallyDocument: 11/05/16 - Pulmonology Follow Up Exercise Type/Frequency Exercises rarely Allergies, Adverse Reactions, Alerts Active Allergies Reaction Severity Comments Date Valium 12/24/2010 contrast dye 12/24/2010 Tetracycline 01/03/2016 Tetanus 01/03/2016 Medications Active Medications SIG Qnty Indications Ordering Date Provider Mucinex -pt unsure of Unknown 12/04/2018 dose, takes one by mouth every morning Multivital [place] daily Unknown 01/02/2016 Tablets Oxygen 2 lpm via n/c Unknown 01/02/2016 Misc Proair HFA 2 puffs by mouth 90units Crystal Bunch, 01/02/2016 108(90Base) every 4 hours as mcg/Act Aerosol needed Levothyroxine Sodium 1 po qd 90tabs Unknown 137mcg Tablets Vitamin D 1 po daily 30tabs Unknown 500Unit Tablets Vitamin C 1 po qd 30units Unknown 500mg Chewtabs Alprazolam 1/2 po bid 20tabs Unknown 0.5mg Tablets Senna 1-2 po qhs 60caps Unknown Capsules Advair Diskus 1 puff by mouth 90units Crystal Bunch, twice a day 250-50mcg/Dose Aerosol Albuterol Sulfate every 4-6 hours as Unknown needed 0.63mg/3ML Nebulizer Aspir-81 1 by mouth every Unknown 81mg Tablets day DR Ibuprofen three times a day Unknown 600mg Tablets prn Spiriva Handihaler inhale the 90caps Crystal Bunch, contents of one 18mcg Capsules capsule via handihaler by mouth daily Meclizine HCL Take One Tablet By Unknown 25mg Mouth Three Times Tablets A Day For Sensation Of Motion Immunizations Description No Information Available Vital Signs Date Vital Result Comment 12/05/2018 3:23pm Height 65 inches 5'5" Weight 168.50 lb Heart Rate 84 /min R. radial, regular BP Systolic Sitting 140 mmHg LA, reg cuff BP Diastolic Sitting 82 mmHg LA, reg cuff BP Systolic Standing 150 mmHg LA, reg cuff BP Diastolic Standing 98 mmHg LA, reg cuff O2 % BldC Oximetry 97 % on 3L NC BMI (Body Mass Index) 28.0 kg/m2 Ejection Fraction 55-60% 01/06/17 09/12/2018 1:20pm Height 65 inches 5'5" Weight 174.00 lb Heart Rate 70 /min BP Systolic Sitting 124 mmHg Lue regular cuff BP Diastolic Sitting 80 mmHg Lue regular cuff Respiratory Rate 12 /min O2 % BldC Oximetry 97 % 3 pulse BMI (Body Mass Index) 29.0 kg/m2 Results Description No Information Available Procedures Description No Information Available Medical Devices Description No Information Available Encounters Type Date Location Provider Dx Diagnosis Office Visit 09/12/2018 [facility] Crystal Bunch J44.9 Chronic obstructive 1:30p [facility] Of pulmonary disease, [employer] Salesperson unspecified J98.4 Other disorders of lung R09.02 Hypoxemia Office Visit 08/11/2018 [facility] J44.1 Chronic 10:29a alec Andrade NP obstructive Hospitalists pulmonary disease w (acute) exacerbation G47.00 Insomnia, unspecified F41.9 Anxiety disorder, unspecified K21.9 Gastro-esophageal reflux disease without esophagitis E03.9 Hypothyroidism, unspecified I10 Essential (primary) hypertension R91.1 Solitary pulmonary nodule Office Visit 08/10/2018 [facility] J44.1 Chronic 10:28a alec Andrade obstructive Hospitalists YOU[employer] DEVELOPMENT PROFESSIONAL pulmonary disease w (acute) exacerbation G47.00 Insomnia, unspecified F41.9 Anxiety disorder, unspecified K21.9 Gastro-esophageal reflux disease without esophagitis E03.9 Hypothyroidism, unspecified Office Visit 08/09/2018 [facility] J44.1 Chronic 10:28a alec Andrade obstructive Hospitalists [place] pulmonary disease w (acute) exacerbation F41.9 Anxiety disorder, unspecified K21.9 Gastro-esophageal reflux disease without esophagitis E03.9 Hypothyroidism, unspecified Office Visit 08/08/2018 [facility] Lani Butler J44.1 Chronic 10:27a alec Andrade M.D. obstructive Hospitalists pulmonary disease w (acute) exacerbation E03.9 Hypothyroidism, unspecified Z86.59 Personal history of other mental and behavioral disorders Assessments Date Code Description Provider 12/05/2018 J44.9 Chronic obstructive pulmonary disease, Daniel Bella M.D. unspecified 12/05/2018 I10 Essential (primary) hypertension Daniel Bella M.D. 12/05/2018 I34.0 Nonrheumatic mitral (valve) Daniel Bella M.D. insufficiency 09/12/2018 J44.9 Chronic obstructive pulmonary disease, Crystal Bunch MD unspecified 09/12/2018 J98.4 Other disorders of lung Crystal Bunch MD 09/12/2018 R09.02 Hypoxemia Crystal Bunch MD 08/11/2018 J44.1 Chronic obstructive pulmonary disease w Patricia Shortle, YOU[employer] DEVELOPMENT PROFESSIONAL (acute) exacerbation 08/11/2018 G47.00 Insomnia, unspecified Patricia Shortle, YOUTH DEVELOPMENT PROFESSIONAL 08/11/2018 F41.9 Anxiety disorder, unspecified Patricia Shortle, YOUTH DEVELOPMENT PROFESSIONAL 08/11/2018 K21.9 Gastro-esophageal reflux disease Patricia Shortle, YOUTH DEVELOPMENT PROFESSIONAL without esophagitis 08/11/2018 E03.9 Hypothyroidism, unspecified Patricia Shortle, YOUTH DEVELOPMENT PROFESSIONAL 08/11/2018 I10 Essential (primary) hypertension Patricia Shortle, YOUTH DEVELOPMENT PROFESSIONAL 08/11/2018 R91.1 Solitary pulmonary nodule Patricia Shortle, YOUTH DEVELOPMENT PROFESSIONAL 08/10/2018 J44.1 Chronic obstructive pulmonary disease w Iris Kay Doto, YOUTH DEVELOPMENT PROFESSIONAL (acute) exacerbation 08/10/2018 G47.00 Insomnia, unspecified Iris Kay Doto, YOUTH DEVELOPMENT PROFESSIONAL 08/10/2018 F41.9 Anxiety disorder, unspecified Iris Kay Doto, YOUTH DEVELOPMENT PROFESSIONAL 08/10/2018 K21.9 Gastro-esophageal reflux disease Iris Kay Doto, YOUTH DEVELOPMENT PROFESSIONAL without esophagitis 08/10/2018 E03.9 Hypothyroidism, unspecified Iris Kay Doto, YOUTH DEVELOPMENT PROFESSIONAL 08/09/2018 J44.1 Chronic obstructive pulmonary disease w Iris Kay Doto, YOUTH DEVELOPMENT PROFESSIONAL (acute) exacerbation 08/09/2018 F41.9 Anxiety disorder, unspecified Iris Kay Doto, YOUTH DEVELOPMENT PROFESSIONAL 08/09/2018 K21.9 Gastro-esophageal reflux disease Iris Parkerfield Bang, [place] without esophagitis 08/09/2018 E03.9 Hypothyroidism, unspecified Iris Parkerfield Beti NP 08/08/2018 J44.1 Chronic obstructive pulmonary disease w Lani Butler M.D. (acute) exacerbation 08/08/2018 E03.9 Hypothyroidism, unspecified Lani Butler M.D. 08/08/2018 Z86.59 Personal history of other mental and Lani Butler M.D. behavioral disorders Plan of Treatment Future Appointment(s):09/18/2019 1:45 pm - Crystal Bunch MD at [facility]12/05/2018 - Daniel Bella M.D.J44.9 Chronic obstructive pulmonary disease, [id number] Essential (primary) [id number] Nonrheumatic mitral (valve) insufficiencyFollow up:one yr ov Functional Status Description No Information Available Mental Status Description No Information Available Referrals Refer to Reason for Referral Status Appt Date Created
[2018-12-12 14:17] LABS: ABS Eosinophils 0.6 10^3/ul (0-0.6); ABS Lymphocytes 0.8 10^3/ul (1.0-4.8); ABS Monocytes 0.9 10^3/ul (0-0.8); ABS Neutrophils 8.7 10^3/ul (1.5-7.7); Eosinophil % 5.7 %; Hematocrit 40 % (35-47); Hemoglobin 13.2 g/dL (12.0-16.0); Lymphocyte % 7.4 %; Mean Corpuscular HGB Conc 33 g/dL (31-36); Mean Corpuscular Hemoglobin 29 pg (27-31); Mean Corpuscular Volume 88 fL (80-97); Mean Platelet Volume 7.6 fL (7.4-10.4); Nucleated Red Blood Cells % 0.2; Platelet Count 278 10^3/uL (150-450); Red Cell Distribution Width 13 % (10-15); White Blood Count 11.1 10^3/uL (3.5-10.8)
[2018-12-12 14:35] LABS: Troponin I 0.01 ng/mL (<0.04)
[2018-12-12 14:40] LABS: Albumin 3.9 g/dL (3.2-5.2); Albumin/Globulin Ratio 1.4 (1-3); BUN/Creatinine Ratio 13.3 (8-20); C Reactive Protein 54.61 mg/L (<8.01); Calcium 9.5 mg/dL (8.6-10.3); EGFR African American 117.6 (>60); EGFR Non-African American 97.2 (>60); Globulin 2.7 g/dL (2-4); Potassium 4.5 mmol/L (3.5-5.0); Total Bilirubin 0.5 mg/dL (0.2-1.0); Total Protein 6.6 g/dL (6.4-8.9)
[2018-12-12 15:23] VITALS: BP 155/84
== END 2018-12-12 15:36 | disposition home or self-care (01) ==
LOC: ED 12:45
DX: J44.1 Chronic obstructive pulmonary disease with (acute) exacerbation (principal); R07.9 Chest pain, unspecified; R06.02 Shortness of breath; Z79.899 Other long term (current) drug therapy; Z87.891 Personal history of nicotine dependence
CPT/HCPCS: 36415; 71046; 80053; 83605; 84484; 85025; 85379; 86140; 87040; 93005; 99283